=== PATIENT | female | born 1970 | race American Indian/Alaskan Native ===

== ENCOUNTER 2017-01-23 14:50 | Inpatient (IN) | payer MEDICARE, OTHER ==
[2017-01-23 14:58] VITALS: BMI 32.1
[2017-01-23] MEDS ORDERED: Alum-Mag Hydrox-Simethicone Susp (30 mL) PO STA (15:26)
--- NOTE | 2017-01-23 15:43 | ED PDOC ---
Arrival/HPI - General Chief Complaint: Chest Pain Time Seen by Provider: 01/23/17 14:55 Historian: Patient - History of Present Illness Narrative History of Present Illness (Text): 01/23/17 15:39 A 47 year old female, whose past medical history includes sciatica (on oxycodone chronically), presents to the emergency department complaining of chest and back pain that developed last night. Patient reports pain radiated to arms this morning. She reports this pain as pressure and notes it worsens upon deep breaths. She states she has a cough and feels lightheaded. Patient denies any nausea, vomiting, abdominal pain or any other complaints at this time. Time/Duration: Other (last night) Symptom Onset: Sudden Symptom Course: Unchanged Quality: Pressure, Other (pain) Activities at Onset: Rest Modifying Factors (Text): none Context: Home Associated Symptoms (Text): cough Past Medical History - Provider Review Nursing Documentation Reviewed: Yes - Cardiac Hx Cardiac Disorders: No - Pulmonary Hx Respiratory Disorders: No - Neurological Hx Neurological Disorder: No - HEENT Hx HEENT Disorder: No - Renal Hx Renal Disorder: No - Endocrine/Metabolic Hx Endocrine Disorders: No - Hematological/Oncological Hx Blood Disorders: No - Integumentary Hx Dermatological Disorder: No - Musculoskeletal/Rheumatological Hx Musculoskeletal Disorders: Yes Hx Degenerative Joint Disease: Yes - Gastrointestinal Hx Gastrointestinal Disorders: No - Genitourinary/Gynecological Hx Genitourinary Disorders: No - Psychiatric Hx Substance Use: No Family/Social History - Physician Review Nursing Documentation Reviewed: Yes Family/Social History: No Known Family HX Smoking Status: Current Some Days Smoker Hx Alcohol Use: Yes Frequency of alcohol use: Socially Hx Substance Use: No Allergies/Home Meds Allergies/Adverse Reactions: Allergies No Known Allergies Allergy (Verified 01/23/17 14:53) Home Medications: Home Meds Medication Instructions Recorded Confirmed Oxycodone HCl/Acetaminophen 1 tab PO PRN PRN 01/23/17 01/23/17 [Oxycodone-Acetaminophen 325 mg-7.5 mg] Review of Systems - Physician Review All systems were reviewed & negative as marked: Yes - Review of Systems Constitutional: absent: Fatigue, Fevers Eyes: absent: Vision Changes ENT: Normal Respiratory: Cough. absent: SOB Cardiovascular: Chest Pain Gastrointestinal: Nausea. absent: Abdominal Pain, Vomiting Genitourinary Female: Vaginal Bleeding. absent: Dysuria Musculoskeletal: Back Pain Neurological: Headache. absent: Dizziness, Focal Weakness Physical Exam Vital Signs Reviewed: Yes Vital Signs Temp Pulse Resp BP Pulse Ox 01/23/17 14:51 98.6 F 86 18 122/70 100 Temperature: Afebrile Blood Pressure: Normal Pulse: Regular Respiratory Rate: Normal Appearance: Positive for: Well-Appearing, Non-Toxic, Comfortable Pain Distress: None Mental Status: Positive for: Alert and Oriented X 3 - Systems Exam Head: Present: Atraumatic, Normocephalic Pupils: Present: PERRL Conjunctiva: Present: Normal Mouth: Present: Moist Mucous Membranes Pharnyx: Present: Normal. No: ERYTHEMA, EXUDATE Neck: Present: Normal Range of Motion Respiratory/Chest: Present: Clear to Auscultation, Good Air Exchange. No: Respiratory Distress, Accessory Muscle Use Cardiovascular: Present: Regular Rate and Rhythm, Normal S1, S2. No: Murmurs Abdomen: Present: Normal Bowel Sounds. No: Tenderness, Distention, Peritoneal Signs Back: Present: Normal Inspection Upper Extremity: Present: Normal Inspection. No: Cyanosis, Edema Lower Extremity: Present: Normal Inspection. No: Edema Neurological: Present: GCS=15, CN II-XII Intact, Speech Normal, Motor Func Grossly Intact, Gait Normal Skin: Present: Warm, Dry, Normal Color. No: Rashes Psychiatric: Present: Alert, Oriented x 3, Normal Insight, Normal Concentration Medical Decision Making ED Course and Treatment: 01/23/17 15:45 Impression: 47 year old female with chest pain and back pain. Differential Diagnosis included but are not limited to: musculoskeletal pain vs. GERD/gas vs. anxiety vs. PE vs. less likely ACS Plan: -- EKG -- chest xray -- Urinalysis -- Labs -- Reassess and disposition Progress Notes: EKG: Ordered, reviewed, and independently interpreted the EKG. Rate : 90 BPM Rhythm : NSR Interpretation : Normal intervals, normal axis, No ST/T changes Comparison : No previous EKG for comparison. Chest XR: NAD 01/23/17 16:55 Patient with noted history with unremarkable vitals and normal ekg. Labs however show very significant anemia. Patient does admit to previous blood transfusion last year for anemia and is supposed to be on iron, presumptively due to heavy menses. Her Hgb is however 6.9, which in the setting of cp, may be potentially playing a role in a potential cardiac etiology. First set of CE is negative but d-dimer is elevated. Chest CT is pending. Patient consented for blood transfusion and will need to be observed further on tele. Patient does report improvement of cp with protonix/famotidine/maalox, possibly reflecting GI etiology. 01/23/17 17:53 Case discussed with hospitalist, Dr. Shah, for placement on the hospitalist service. - Lab Interpretations Lab Results: 01/23/17 15:45 01/23/17 15:45 Lab Results 01/23/17 16:50: Blood Type Confirm AB POSITIVE 01/23/17 16:40: Blood Type AB POSITIVE, Antibody Screen Negative, Crossmatch See Detail, BBK History Checked No verified bt 01/23/17 15:45: Sodium 137, Potassium 3.9, Chloride 107, Carbon Dioxide 20 L, Anion Gap 14, BUN 12, Creatinine 0.7, Est GFR ( Amer) > 60, Est GFR (Non- Af Amer) > 60, Random Glucose 97, Calcium 8.9, Magnesium 2.1, Total Bilirubin 0.5, AST 29, ALT 33, Alkaline Phosphatase 84, Lactate Dehydrogenase 554, Total Creatine Kinase 86, Troponin I 0.05, Total Protein 8.3, Albumin 4.1, Globulin 4.2, Albumin/Globulin Ratio 1.0 L, Lipase 128 01/23/17 15:45: PT 10.4, INR 0.96, APTT 25.2, D-Dimer, Quantitative 0.61 H 01/23/17 15:45: WBC 5.0, RBC 3.79, Hgb 6.9 L*, Hct 24.3 L, MCV 64.1 L, MCH 18.2 L, MCHC 28.4 L, RDW 19.0 H, Plt Count 224, Gran % 62.7, Lymph % (Auto) 24.6, [place] % (Auto) 11.9 H, Eos % (Auto) 0.4 L, Baso % (Auto) 0.4, Gran # 3.11, Lymph # 1.2, [place] # 0.6, Eos # 0.0, Baso # 0.02 01/23/17 15:35: Urine Color Yellow, Urine Appearance Clear, Urine pH 6.0, Ur Specific [place] 1.025, Urine Protein Negative, Urine Glucose (UA) Negative, Urine Ketones Negative, Urine Blood Negative, Urine Nitrate Negative, Urine Bilirubin Negative, Urine Urobilinogen 0.2, Ur Leukocyte Esterase Negative I have reviewed the lab results: Yes - RAD Interpretation Radiology Orders: 01/23/17 15:25 CHEST PORTABLE [RAD] Stat 01/23/17 16:24 ANGIO CHEST PE PROTOCOL [CT] Stat - EKG Interpretation Interpreted by ED Physician: Yes Type: 12 lead EKG - Medication Orders Current Medication Orders: Discontinued Medications Al Hydrox/Mg Hydrox/Simethicone (Maalox Plus 30 Ml) 30 ml PO STAT STA Stop: 01/23/17 15:27 Last Admin: 01/23/17 15:54 Dose: 30 ml Famotidine (Pepcid) 20 mg IVP STAT STA Stop: 01/23/17 15:27 Last Admin: 01/23/17 15:54 Dose: 20 mg - Susyibe Statement The provider has reviewed the documentation as recorded by the Brenda Pacheco All medical record entries made by the Brenda were at my direction and personally dictated by me. I have reviewed the chart and agree that the record accurately reflects my personal performance of the history, physical exam, medical decision making, and the department course for this patient. I have also personally directed, reviewed, and agree with the discharge instructions and disposition. Disposition/Present on Arrival - Present on Arrival Any Indicators Present on Arrival: No History of DVT/PE: No History of Uncontrolled Diabetes: No Urinary Catheter: No History of Decub. Ulcer: No History Surgical Site Infection Following: None - Disposition Have Diagnosis and Disposition been Completed?: Yes Diagnosis: Symptomatic anemia, Chest pain Disposition: HOSPITALIZED Disposition Time: 16:55 Patient Plan: Observation, Telemetry Patient Problems: Current Active Problems Problem Status Onset Chest pain Acute Symptomatic anemia Acute Condition: FAIR
[2017-01-23 15:53] LABS: ADD MANUAL DIFF? NO
[2017-01-23 15:57] LABS: BASO # 0.02 K/mm3 (0.0-2.0); BASO % 0.4 % (0.0-3.0); EOS % 0.4 % (1.5-5.0); GRAN # 3.11 (1.4-6.5); GRAN % 62.7 % (50.0-68.0); HEMATOCRIT 24.3 % (36.0-48.0); LYMPH # 1.2 (1.2-3.4); LYMPH % 24.6 % (22.0-35.0); MEAN CELL VOLUME 64.1 fL (80.0-105.0); MEAN CORPUSCULAR HEMOGLOBIN 18.2 pg (25.0-35.0); MEAN CORPUSCULAR HGB CONC 28.4 g/dl (31.0-37.0); MONO # 0.6 (0.1-0.6); MONO % 11.9 % (1.0-6.0); PLATELET COUNT 224 10^3/uL (120.0-450.0)
[2017-01-23 15:59] LABS: URINE BILIRUBIN NEGATIVE (NEGATIVE); URINE BLOOD NEGATIVE (NEGATIVE); URINE GLUCOSE (UA) NEGATIVE (NEGATIVE); URINE KETONE NEGATIVE (NEGATIVE); URINE LEUKOCYTE ESTERASE NEGATIVE Leu/uL (NEGATIVE); URINE PROTEIN NEGATIVE mg/dL (<30 mg/dL); URINE UROBILINOGEN 0.2 E.U./dL (<1 E.U./dL)
[2017-01-23 16:02] LABS: URINE APPEARANCE CLEAR (CLEAR); URINE COLOR YELLOW (YELLOW)
[2017-01-23 16:05] LABS: ALKALINE PHOSPHATASE 84 U/L (38-133); ALT/SGPT 33 U/L (7-56); AST/SGOT 29 U/L (15-39); BILIRUBIN,TOTAL 0.5 mg/dL (0.2-1.3); BLOOD UREA NITROGEN 12 mg/dL (7-21); CALCIUM 8.9 mg/dL (8.4-10.5); CARBON DIOXIDE 20 mmol/L (21-33); CHLORIDE 107 mmol/L (98-107); GFR AFRICAN-AMERICAN > 60; GLUCOSE,RANDOM 97 mg/dL (70-110); LIPASE 128 U/L (23-300); MAGNESIUM 2.1 mg/dL (1.7-2.2); POTASSIUM 3.9 mmol/L (3.6-5.0); SODIUM 137 mmol/L (132-148); TOTAL PROTEIN 8.3 g/dL (5.8-8.3)
[2017-01-23 16:09] LABS: D DIMER 0.61 mg/L FEU (0-0.50); INR 0.96 (0.93-1.08); PARTIAL THROMBOPLASTIN TIME 25.2 Seconds (23.7-30.8)
[2017-01-23 16:17] LABS: TROPONIN I 0.05 ng/mL
--- NOTE | 2017-01-23 17:33 | RAD ---
HISTORY: chest pain COMPARISON: The the FINDINGS: LUNGS: No active pulmonary disease. PLEURA: No significant pleural effusion identified, no pneumothorax apparent. CARDIOVASCULAR: Borderline/mild cardiomegaly. OSSEOUS STRUCTURES: No significant abnormalities. VISUALIZED UPPER ABDOMEN: Normal. OTHER FINDINGS: None. IMPRESSION: No active disease.
[2017-01-23] MEDS ORDERED: Iohexol 350 MG/100 ML VIAL ONE (18:13)
[2017-01-23 18:27] LABS: IRON 15 ug/dL (45-180)
--- NOTE | 2017-01-23 18:48 | CP.PCM.HP ---
<Nhan Ng - Last Filed: 01/23/17 18:38> History of Present Illness - History of Present Illness History of Present Illness: CC: Chest pain 47 year old female with past medical history of anemia, back pain and sciatica ( on oxycodone chronically), presents to the ED complaining of chest pain. Pt states that the pain first started last night and it has got progressively worse. Today it has been radiating to the L arm and neck. The pain is associated with diffuse sweating. Pt states that she first thought this was just some gas but the pain did not go away. She states that the pain is substernal. Last year she was admitted to the hospital for Anemia. She states that she had a endoscopy done which showed an infection which she took abx for 14 days. Also 4 months ago she had a procedure for an ovarian cyst. She denies any headaches, dizziness, f/c, sob, abd pain, n/v/d, urinary changes, hematochezia, melana, or bm changes. Pmh: back pain, sciatica, anemia Psh: ovarian cyst removal 4mo ago All: NKA SH: active smoker, denies drinking and drugs FH: grand mother with heart dx and from stroke OBGYN hx : LMP 2-3 weeks ago, changes 2-3 pads a day, normal bleeding Present on Admission - Present on Admission Any Indicators Present on Admission: No Review of Systems - Review of Systems All systems: reviewed and no additional remarkable complaints except (HPI) Past Patient History - Past Social History Smoking Status: Heavy Smoker > 10 Cigarettes Daily Alcohol: None Drugs: Denies - CARDIAC Hx Cardiac Disorders: No - PULMONARY Hx Respiratory Disorders: No - NEUROLOGICAL Hx Neurological Disorder: No - HEENT Hx HEENT Problems: No - RENAL Hx Chronic Kidney Disease: No - ENDOCRINE/METABOLIC Hx Endocrine Disorders: No - HEMATOLOGICAL/ONCOLOGICAL Hx Blood Disorders: No - INTEGUMENTARY Hx Dermatological Problems: No - MUSCULOSKELETAL/RHEUMATOLOGICAL Hx Musculoskeletal Disorders: Yes Hx Degenerative Joint Disease: Yes - GASTROINTESTINAL Hx Gastrointestinal Disorders: No - GENITOURINARY/GYNECOLOGICAL Hx Genitourinary Disorders: No - PSYCHIATRIC Hx Substance Use: No - SURGICAL HISTORY Hx Surgeries: No Meds Allergies/Adverse Reactions: Allergies Allergy/AdvReac Type Severity Reaction Status Date / Time No Known Allergies Allergy Verified 01/23/17 14:53 Physical Exam - Constitutional Appears: No Acute Distress - Head Exam Head Exam: ATRAUMATIC, NORMAL INSPECTION, NORMOCEPHALIC - Eye Exam Eye Exam: EOMI, Normal appearance, PERRL Pupil Exam: NORMAL ACCOMODATION, PERRL - ENT Exam ENT Exam: Mucous Membranes Moist, Normal Exam - Neck Exam Neck exam: Positive for: Normal Inspection - Respiratory Exam Respiratory Exam: Clear to Auscultation Bilateral, NORMAL BREATHING PATTERN. absent: Rales, Wheezes - Cardiovascular Exam Cardiovascular Exam: REGULAR RHYTHM, RRR, +S1, +S2 - GI/Abdominal Exam GI & Abdominal Exam: Soft. absent: Distended, Tenderness - Extremities Exam Extremities exam: Positive for: normal inspection - Neurological Exam Neurological exam: Alert, Oriented x3, Reflexes Normal - Psychiatric Exam Psychiatric exam: Normal Affect, Normal Mood - Skin Skin Exam: Dry, Intact, Normal Color, Warm Results - Vital Signs Recent Vital Signs: Last Vital Signs Temp 98.2 F 01/23/17 18:25 Pulse 76 01/23/17 18:25 Resp 16 01/23/17 18:25 BP 146/84 01/23/17 18:25 Pulse Ox 100 01/23/17 14:51 - Labs Result Diagrams: 01/23/17 15:45 01/23/17 15:45 Labs: Laboratory Results - last 24 hr 01/23/17 18:00 Iron 15 L TIBC 459 % Saturation 3 L Assessment & Plan - Assessment and Plan (Free Text) Assessment: 47 year old female with past medical history of anemia, back pain and sciatica ( on oxycodone chronically), presents to the ED complaining of chest pain likely 2 /2 anemia. r/o ACS 1. R/o ACS - Trops .05 - Stat Ekg showed NSR - D-Dimer elevated 0.61 - F/u CT angio - Serial trops and EKG - Daily CBC CMP Mg and P - F/u Cardiology consult - F/u Echo 2. Anemia - Hb 6.9 - Blood transfusion consent - 2 unit PRBC ordered - f/u anemia work up - F/u CT abdomen - F/u transvaginal US - F/u GI consult - Protonix daily 3. Back pain, sciatica - Cont to monitor - Pain control 4. GI/DVT ppx - Protonix and SCDs - HHD Case and plan was seen, reviewed and dicussed in detail with Dr Shah. <Bryant Shah - Last Filed: 01/24/17 07:18> Results - Vital Signs Recent Vital Signs: Last Vital Signs Temp 98.2 F 01/24/17 06:00 Pulse 73 01/24/17 06:00 Resp 18 01/24/17 06:00 BP 111/70 01/24/17 06:00 Pulse Ox 100 01/24/17 06:00 - Labs Result Diagrams: 01/23/17 15:45 01/23/17 15:45 Labs: Laboratory Results - last 24 hr 01/23/17 01/23/17 01/23/17 18:00 18:00 21:00 Iron 15 L TIBC 459 % Saturation 3 L Ferritin 4.3 Lactate Dehydrogenase Total Creatine Kinase Troponin I Vitamin B12 758 Folate 8.9 Urine Opiates Screen Negative Urine Methadone Screen Negative Ur Barbiturates Screen Negative Ur Phencyclidine Scrn Negative Ur Amphetamines Screen Negative U Benzodiazepines Scrn Negative U Oth Cocaine Metabols Negative U Cannabinoids Screen Positive H 01/23/17 22:00 Iron TIBC % Saturation Ferritin Lactate Dehydrogenase 454 Total Creatine Kinase 95 Troponin I 0.10 D Vitamin B12 Folate Urine Opiates Screen Urine Methadone Screen Ur Barbiturates Screen Ur Phencyclidine Scrn Ur Amphetamines Screen U Benzodiazepines Scrn U Oth Cocaine Metabols U Cannabinoids Screen Attending/Attestation - Attestation I have personally seen and examined this patient.: Yes I have fully participated in the care of the patient.: Yes I have reviewed all pertinent clinical information: Yes Notes (Text): 01/23/17 47 year old female with past medical history of anemia and chronic back pain who presented with complaint of chest pain and shortness of breath. She is admitted to telemetry unit to rule out ACS. Will obtain serial troponins ( initial one is indeterminate at 0.05). Cardiology evaluation is requested and echocardiogram is ordered. D-dimer was mildly elevated and CT angio is ordered to rule out PE. She has no LE edema or calf tenderness. She was also found to have significant microcytic anemia with hemoglobin of 6.9. She is being transfused prbc. Will request GI evaluation to rule out GI blood loss. She reports her last EGD was about one year ago. She also report heavy menses at times. Transvaginal US and CT abd/pelvis is ordered. She is on percocet for history of chronic back pain / sciatica. Bryant Shah MD Hospitalist.
[2017-01-23] MEDS ORDERED: OXYCODONE HCL PO PRN (19:04)
[2017-01-23] MEDS ORDERED: ACETAMINOPHEN T PO PRN (19:04)
[2017-01-23] MEDS ORDERED: [UNRECOGNIZED DRUG - OTHER] PO PRN (19:04)
[2017-01-23 22:07] LABS: FOLATE 8.9 ng/mL
[2017-01-23 22:30] LABS: TROPONIN I 0.1 ng/mL
[2017-01-23] MEDS: Oxycodone/Acetaminophen 5/325 mg Tab PO PRN (22:45)
--- NOTE | 2017-01-23 22:45 | CT ---
EXAM: CT Angiography Chest With Intravenous Contrast CLINICAL HISTORY: 47 years old, female; Pain; Chest pain; Patient HX: Cp - R/O pe TECHNIQUE: Axial computed tomographic angiography images of the chest with intravenous contrast using pulmonary embolism protocol. This CT exam was performed using one or more of the following dose reduction techniques: automated exposure control, adjustment of the mA and/or kV according to patient size, and/or use of iterative reconstruction technique. MIP reconstructed images were created and reviewed. Coronal and sagittal reformatted images were created and reviewed. CONTRAST: 96 mL of OMNIPAQUE 350 administered intravenously. COMPARISON: DX - CHEST PORTABLE 01/23/2017 4:01:02 PM FINDINGS: Limitations: Motion artifact - mild. Pulmonary arteries: No definite pulmonary embolism. Aorta: No aneurysm. No dissection. Lungs: Few small cysts or bullae. No consolidation. Pleural space: No significant effusion. No pneumothorax. Heart: Borderline cardiomegaly. No significant pericardial effusion. Mediastinum: Small hiatal hernia. Bones/joints: Mild scoliosis. No acute fracture. Soft tissues: Unremarkable. Lymph nodes: No pathologically enlarged lymph nodes. Upper abdomen: See abdomen CT report for additional details. IMPRESSION: 1. No definite CT evidence of pulmonary embolism. 2. Incidental/non-acute findings are described above.
--- NOTE | 2017-01-23 22:50 | CT ---
EXAM: CT Abdomen and Pelvis Without Intravenous Contrast CLINICAL HISTORY: 47 years old, female; Pain; Abdominal pain; Patient HX: Chest pain, anemia TECHNIQUE: Axial computed tomography images of the abdomen and pelvis without intravenous contrast. This CT exam was performed using one or more of the following dose reduction techniques: automated exposure control, adjustment of the mA and/or kV according to patient size, and/or use of iterative reconstruction technique. Coronal and sagittal reformatted images were created and reviewed. COMPARISON: No relevant prior studies available. FINDINGS: Limitations: Lack of intravenous contrast. Lower thorax: See chest CT report for additional details. ABDOMEN: Liver: Unremarkable. Gallbladder and bile ducts: Multiple calcified gallstones. No ductal dilation. Pancreas: Unremarkable. No ductal dilation. Spleen: Mild splenomegaly, AP dimension. Adrenals: No mass. Kidneys and ureters: No renal calculi. No hydronephrosis. Stomach and bowel: Apparent mild mural thickening of few jejunal loops. No associated inflammatory stranding. No obstruction. Appendix: Normal caliber. No inflammation. PELVIS: Bladder: Unremarkable. No stones. Reproductive: 3.2 x 4.2 x 3.5 cm fat and soft tissue density lesion within LEFT ovary. 6.0 x 3.2 x 3.6 cm hypodense lesion within RIGHT ovary. ABDOMEN and PELVIS: Intraperitoneal space: Small free fluid within pelvis. No free air. Bones/joints: Scoliosis and degenerative changes of spine. No acute fracture. Soft tissues: Unremarkable. Vasculature: Mild atherosclerotic disease. No abdominal aortic aneurysm. Lymph nodes: No pathologically enlarged lymph nodes. IMPRESSION: 1. Possible mild enteritis. Clinical correlation is needed. 2. Probable RIGHT ovarian cyst. Suggest ultrasound. 3. LEFT ovarian dermoid. 4. Cholelithiasis. 5. Incidental/non-acute findings are described above.
[2017-01-24] MEDS ORDERED: Alum-Mag Hydrox-Simethicone Susp (30 mL) PO ONE (00:11)
[2017-01-24] MEDS ORDERED: Pneumococcal 23-Valent Vaccine IM ONE (03:06)
[2017-01-24] MEDS: Pantoprazole 40 mg EC Tab PO SCH (05:37)
[2017-01-24 07:49] LABS: HEMATOCRIT 28.6 % (36.0-48.0); MEAN CELL VOLUME 67.1 fL (80.0-105.0); MEAN CORPUSCULAR HEMOGLOBIN 19.7 pg (25.0-35.0); MEAN CORPUSCULAR HGB CONC 29.4 g/dl (31.0-37.0); PLATELET COUNT 181 10^3/uL (120.0-450.0); RED CELL DISTRIBUTION WIDTH 20.7 % (11.5-14.5); WHITE BLOOD COUNT 5.2 10^3/ul (4.5-11.0)
[2017-01-24 08:01] LABS: BLOOD UREA NITROGEN 8 mg/dL (7-21); CALCIUM 8.7 mg/dL (8.4-10.5); CARBON DIOXIDE 23 mmol/L (21-33); CHLORIDE 107 mmol/L (98-107); CHOLESTEROL 155 mg/dL (130-200); GFR AFRICAN-AMERICAN > 60; GLUCOSE,RANDOM 85 mg/dL (70-110); MAGNESIUM 2.2 mg/dL (1.7-2.2); PHOSPHOROUS 3.5 mg/dL (2.5-4.5); POTASSIUM 3.7 mmol/L (3.6-5.0); SODIUM 139 mmol/L (132-148)
[2017-01-24 08:14] LABS: TROPONIN I 0.16 ng/mL
[2017-01-24] MEDS ORDERED: Ferric Sodium Gluconat Complex 62.5 mg/5 ml Vial IVPB SCH (10:00)
[2017-01-24] MEDS: Oxycodone/Acetaminophen 5/325 mg Tab PO PRN (15:07)
--- NOTE | 2017-01-24 15:58 | CP.PCM.PN ---
<Luis Miguel Daniel - Last Filed: 01/24/17 15:54> Subjective - Date & Time of Evaluation Date of Evaluation: 01/24/17 Time of Evaluation: 08:30 - Subjective Subjective: Dr. Daniel PGY 1 hospitalist note Patient seen and evaluated at bedside with attending physician. She states she is feeling better and her chest pain has improved. She denies any SOB, cough, palpitations, nausea, vomiting, or chills. She says she still has some weakness. She states in the past she has had to get IV iron after an infusion. Per nursing, no adverse events over night. Objective - Vital Signs/Intake and Output Vital Signs (last 24 hours): Temp Pulse Resp BP Pulse Ox 98.1 F 68 16 105/50 L 99 01/24/17 11:39 01/24/17 13:28 01/24/17 11:39 01/24/17 11:39 01/24/17 08:36 Intake and Output: 01/24/17 01/24/17 06:59 18:59 Intake Total 705 540 Balance 705 540 - Medications Medications: Current Medications Aspirin (Ecotrin) 81 mg PO ONCE ONE Stop: 01/25/17 10:28 Atorvastatin Calcium (Lipitor) 40 mg PO DIN [facility] Metoprolol Tartrate (Lopressor) 25 mg PO BID [facility] Last Admin: 01/24/17 10:51 Dose: Not Given Oxycodone/Acetaminophen (Percocet 5/325 Mg Tab) 1 tab PO Q8H PRN PRN Reason: Pain, moderate (4-7) Last Admin: 01/24/17 15:07 Dose: 1 tab Pantoprazole Sodium (Protonix Ec Tab) 40 mg PO 0630 [facility] Last Admin: 01/24/17 05:37 Dose: 40 mg - Labs Labs: 01/24/17 07:40 01/24/17 07:40 PT 10.4 Seconds (9.9-11.8) 01/23/17 15:45 INR 0.96 (0.93-1.08) 01/23/17 15:45 APTT 25.2 Seconds (23.7-30.8) 01/23/17 15:45 - Constitutional Appears: Non-toxic, No Acute Distress - Head Exam Head Exam: ATRAUMATIC, NORMOCEPHALIC - Eye Exam Eye Exam: EOMI, Normal appearance, PERRL Pupil Exam: NORMAL ACCOMODATION, PERRL - ENT Exam ENT Exam: Mucous Membranes Moist. absent: Normal Oropharynx - Respiratory Exam Respiratory Exam: Clear to Ausculation Bilateral, NORMAL BREATHING PATTERN. absent: Rales, Rhonchi, Wheezes - Cardiovascular Exam Cardiovascular Exam: REGULAR RHYTHM, +S1, +S2. absent: Gallop, Rubs, Murmur - GI/Abdominal Exam GI & Abdominal Exam: Soft, Normal Bowel Sounds. absent: Tenderness - Extremities Exam Extremities Exam: Normal Capillary Refill, Normal Inspection. absent: Pedal Edema, Tenderness - Back Exam Back Exam: NORMAL INSPECTION. absent: rash noted, tenderness - Neurological Exam Neurological Exam: Alert, Awake, CN II-XII Intact, Oriented x3 - Psychiatric Exam Psychiatric exam: Normal Affect, Normal Mood - Skin Skin Exam: Dry, Intact, Pallor, Warm Assessment and Plan - Assessment and Plan (Free Text) Assessment: 47 year old female with past medical history of anemia, back pain and sciatica ( on oxycodone chronically), presents with complaint of chest pain likely secondary to anemia. Transfused 2 unites of PRBC. Cardiac enzymes trending up. Plan: Chest Pain * Cardiology consulted, help appreciated * Troponin trending up -currently 0.16, continue to trend * EKG shows normal sinus rhythm * D-Dimer elevated 0.61 * Chest CT showed no definite evidence of PE [see full report] * Percocet prn pain * toxicology positive for cannabinoids * Daily CBC CMP Mg and P * F/u Echo Anemia * Initial Hgb 6.9 now 8.4 * Blood transfusion consent * 2 unit PRBC given * Iron studies show Iron 15, TIBc 459, 3%saturation with Ferritin of 4.3 * CT abdomen shows possible mild enteritis, right ovarian cyst, left ovaraian dermoid, cholelithiasis * GI consulted, help appreciated * Started on IV Iron daily * F/u transvaginal US * Protonix daily Back pain, sciatica * Cont to monitor * Pain control GI/DVT ppx * Protonix and SCDs * HHD Case and plan was seen, reviewed and discussed in detail with attending. <Bryant Shah - Last Filed: 01/25/17 11:54> Objective - Vital Signs/Intake and Output Vital Signs (last 24 hours): Temp Pulse Resp BP Pulse Ox 98.1 F 77 20 122/68 98 01/25/17 05:42 01/25/17 05:42 01/25/17 05:42 01/25/17 05:42 01/25/17 05:42 Intake and Output: 01/25/17 01/25/17 06:59 18:59 Intake Total 660 Balance 660 - Medications Medications: Current Medications Atorvastatin Calcium (Lipitor) 40 mg PO DIN [facility] Last Admin: 01/24/17 16:32 Dose: Not Given Metoprolol Tartrate (Lopressor) 25 mg PO BID [facility] Last Admin: 01/25/17 09:11 Dose: Not Given Oxycodone/Acetaminophen (Percocet 5/325 Mg Tab) 1 tab PO Q8H PRN PRN Reason: Pain, moderate (4-7) Last Admin: 01/25/17 01:04 Dose: 1 tab Pantoprazole Sodium (Protonix Ec Tab) 40 mg PO 0630 [facility] Last Admin: 01/25/17 06:02 Dose: 40 mg - Labs Labs: 01/25/17 06:30 01/25/17 06:30 PT 10.4 Seconds (9.9-11.8) 01/23/17 15:45 INR 0.96 (0.93-1.08) 01/23/17 15:45 APTT 25.2 Seconds (23.7-30.8) 01/23/17 15:45 Attending/Attestation - Attestation I have personally seen and examined this patient.: Yes I have fully participated in the care of the patient.: Yes I have reviewed all pertinent clinical information, including history, physical exam and plan: Yes Notes (Text): 01/24/17 47 year old female with past medical history of anemia and chronic back pain who presented with complaint of chest pain and shortness of breath. She was found to have significant microcytic anemia with hemoglobin of 6.9. She received two units of prbc with improvement of hemoglobin to 8.4. Will begin iv iron therapy. CT abd/pelvis and transvaginal US were reviewed. GI evaluation was requested to rule out GI source of blood loss. Her chest pain has resolved. D-dimer was mildly elevated but CT angio is negative for PE. She does have borderline to mildly elevated troponin. Cardiology evaluation was requested. Aspirin, statin and metoprolol were ordered. Echocardiogram is pending. She is on percocet for history of chronic back pain / sciatica. Bryant Shah MD Hospitalist.
--- NOTE | 2017-01-24 18:59 | CON ---
DATE: 01/24/2017 REASON FOR CONSULTATION: Chest pain. HISTORY OF PRESENT ILLNESS: The patient is a 47-year-old -[place] female who is on disabilit y because of chronic low back pain. She presents because of chest pain radiating to the left shoulde r and the upper back as well as abdominal discomfort. The patient is unaware of any prior cardiac hi story in the past. The patient reported both dizziness and diaphoresis during her chest discomfort. SOCIAL HISTORY: The patient is a smoker and drinker. PAST MEDICAL HISTORY: History of ovarian cyst. REVIEW OF SYSTEMS: No nausea or vomiting. No hematemesis or melena. No fever or chills. MEDICATIONS: Aspirin 81 mg once a day, Lipitor 10 mg once a day, Lopressor 25 mg twice a day, Proton ix 40 mg p.o. daily. PHYSICAL EXAMINATION: GENERAL: The patient is a middle-aged female who does not appear to be in any distress. VITAL SIGNS: Blood pressure 105/70, heart rate 74, temperature 98.1, respirations 16. HEENT: Normocephalic. NECK: No JVD. CHEST: Clear. HEART: S1, S2 regular. ABDOMEN: Soft. EXTREMITIES: No edema or calf tenderness. LABORATORY DATA: Today's SMA-7 is within normal limit. Troponin was 0.05, 0.1 and 0.16. Lipid prof ile is within normal limits. D-dimer slightly elevated at 0.61. PT, PTT within normal limits. Hemo globin and hematocrit 8.4 and 28.6. White count and platelet count are 5.2 and 181,000. Admitting h emoglobin and hematocrit were 6.9 and 24.3. The patient received 2 units of packed RBC transfusion. CT angio of the chest: No definite pulmonary embolus. Abdomen and pelvis CT scan impression: Poss ible mild enteritis, probable right ovarian cyst, left ovarian dermoid, cholelithiasis. ASSESSMENT: 1. Chest pain with borderline troponin elevation. Consider [id number] myocardial infarction. 2. Acute blood loss. Consider gastrointestinal bleeding. 3. Cannabinoid abuse. RECOMMENDATIONS: Continue current aspirin 81 mg once a day, increase Lipitor to 40 mg once a day. C ontinue Lopressor 25 mg twice a day. Obtain an echocardiogram as well as GI evaluation. Faustino Contreras MD cc: [id number] TT: 01/24/2017 18:58:42 Confirmation # [id number] Dictation # [id number] mn
--- NOTE | 2017-01-24 19:03 | US ---
Pelvic ultrasound 01/24/2017. History: Heavy menses. Transvaginal sonographic evaluation of the pelvis performed. Findings: The uterus measures approximately 9.7 x 4.2 x 6.2 cm. Endometrial stripe measures approximately 8.9 mm. . The uterus is heterogeneous. Discrete fibroids are present one, measuring 2.0 x 1.7 x 1.0 cm and another measuring.7 x.68 x .93 cm. Trace fluid present in the cul de sac. Left ovary not visualized. Right ovary measures 4.0 x 3.6 x 3.7 cm and contains small cyst that measures 3.3 x 2.4 x 3.3 cm. Impression: Uterine fibroids as above. Right ovarian cyst. Consider repeat U/S in 6 weeks to assess resolution
[2017-01-24 20:22] LABS: TROPONIN I 0.11 ng/mL
--- NOTE | 2017-01-24 22:14 | CARD ---
APPROVED REPORT EKG Measurement Heart [id number] <Conclusion> Normal sinus rhythm Normal ECG
[2017-01-25 00:14] LABS: TROPONIN I 0.1 ng/mL
[2017-01-25] MEDS: Oxycodone/Acetaminophen 5/325 mg Tab PO PRN ×2 (01:04→18:29)
[2017-01-25] MEDS: Pantoprazole 40 mg EC Tab PO SCH (06:02)
[2017-01-25 08:39] LABS: HEMATOCRIT 29.8 % (36.0-48.0); MEAN CELL VOLUME 67.4 fL (80.0-105.0); MEAN CORPUSCULAR HEMOGLOBIN 20.1 pg (25.0-35.0); MEAN CORPUSCULAR HGB CONC 29.9 g/dl (31.0-37.0); PLATELET COUNT 199 10^3/uL (120.0-450.0); RED CELL DISTRIBUTION WIDTH 20.9 % (11.5-14.5); WHITE BLOOD COUNT 5.3 10^3/ul (4.5-11.0)
--- NOTE | 2017-01-25 08:48 | CON ---
DATE: 01/24/2017 This patient was seen and evaluated earlier. This 47-year-old patient with a past medical history of chronic back pain, sciatica, admitted with weakness and also some atypical chest pain. The patient denies any bleeding per rectum or vomiting. The patient was found to have a hemoglobin of 6.9, anemi c. Stool for occult blood was done . The patient was negative. The patient is being fol lowed by , and he was found to have ovarian cyst surgery done before. The patient's primary doctor is . The patient received some blood transfusion. The patient received 2 units of blood transfusion. The patient is not having any periods. In the past, she was found to be anemic a nd an endoscopy was done about a year ago by and she was told it was okay. She took some a ntibiotic for treatment of what appeared to be for H. pylori. She never had a colonoscopy done. Jus t before the endoscopy, during the time of evaluation with endoscopy, she was also found to be anemic at that time; that was a year ago. The patient was also found to have mildly elevated troponin leve l. SOCIAL HISTORY: Positive for smoking and alcohol. PAST MEDICAL HISTORY: As above. REVIEW OF SYSTEMS: Positive as above. Other systems reviewed, negative. Has atypical chest pain on the left side radiating to the shoulder area. The patient has significant anemia after being transf used. PHYSICAL EXAMINATION: GENERAL: The patient sitting up in bed, not in acute distress. VITAL SIGNS: Blood pressure 105/70, heart rate 74, temperature 98.1, respirations 16. HEENT: Atraumatic and anicteric. NECK: Supple. HEART: S1, S2 heard. LUNGS: Bilateral air entry present. ABDOMEN: Soft. There is no tenderness. EXTREMITIES: No edema. NEUROLOGIC: Alert, oriented. Moves all the extremities. LABORATORY DATA: Hemoglobin was 6.9, transfused 2 units and hemoglobin is 8.4 now. MCV is 64.1. The patient did have a CT of the abdomen. The CT of the abdomen and pelvis done showed . The p atient also has gallstones. The ultrasound done showed uterine fibroids . IMPRESSION: This is a 47-year-old patient with significant anemia, admitted with atypical chest pain and being evaluated by cardiology for mildly elevated troponin level. Would recommend: 1. Ultrasound scan of the abdomen. 2. Empiric PPI. 3. We will consider upper GI endoscopy after cardiac clearance. We will continue to closely follow up her care and suggest further management based on the clinical c ourse. We will continue to closely follow up her care. The patient will endoscopy, continue t he empiric PPI, followup of the hemoglobin and hematocrit. Thank you very much for allowing us to participate in the care of the patient. Lulu Walker MD cc: [id number] TT: 01/24/2017 23:28:31 Confirmation # [id number] Dictation # [id number] mn
[2017-01-25 08:52] LABS: BLOOD UREA NITROGEN 9 mg/dL (7-21); CALCIUM 8.9 mg/dL (8.4-10.5); CARBON DIOXIDE 25 mmol/L (21-33); CHLORIDE 106 mmol/L (98-107); GFR AFRICAN-AMERICAN > 60; GLUCOSE,RANDOM 82 mg/dL (70-110); POTASSIUM 4.1 mmol/L (3.6-5.0); SODIUM 138 mmol/L (132-148)
--- NOTE | 2017-01-25 12:16 | CP.PCM.PN ---
Addendum entered and electronically signed by Olayinka Granados DO 01/25/17 13:54: Patient started on Plavix and will be undergoing cardiac catheterization today as per cardio recs. Original Note: <Olayinka Granados - Last Filed: 01/25/17 12:54> Subjective - Date & Time of Evaluation Date of Evaluation: 01/25/17 Time of Evaluation: 09:10 - Subjective Subjective: Patient seen and examined at bedside with medical attending. Patient reports feeling more energized compared to time of admission. Patient states she no longer has chest pain. At time of examination patient denied hematochezia/ hematemesis. Patient denies abnormal vaginal bleeding and states her periods are normal. Currently denies headache/dizziness, palpitations, shortness of breath, and abdominal pain. No acute events over night. Patient tentatively schedule for endoscopy and colonoscopy tomorrow morning, awaiting cardiac clearance. Objective - Vital Signs/Intake and Output Vital Signs (last 24 hours): Temp Pulse Resp BP Pulse Ox 98.1 F 77 20 122/68 98 01/25/17 05:42 01/25/17 05:42 01/25/17 05:42 01/25/17 05:42 01/25/17 05:42 Intake and Output: 01/25/17 01/25/17 06:59 18:59 Intake Total 660 Balance 660 - Medications Medications: Current Medications Atorvastatin Calcium (Lipitor) 40 mg PO DIN REPLACED BY [facility] Last Admin: 01/24/17 16:32 Dose: Not Given Metoprolol Tartrate (Lopressor) 25 mg PO BID REPLACED BY [facility] Last Admin: 01/25/17 09:11 Dose: Not Given Oxycodone/Acetaminophen (Percocet 5/325 Mg Tab) 1 tab PO Q8H PRN PRN Reason: Pain, moderate (4-7) Last Admin: 01/25/17 01:04 Dose: 1 tab Pantoprazole Sodium (Protonix Ec Tab) 40 mg PO 0630 REPLACED BY [facility] Last Admin: 01/25/17 06:02 Dose: 40 mg - Labs Labs: 01/25/17 06:30 01/25/17 06:30 PT 10.4 Seconds (9.9-11.8) 01/23/17 15:45 INR 0.96 (0.93-1.08) 01/23/17 15:45 APTT 25.2 Seconds (23.7-30.8) 01/23/17 15:45 - Constitutional Appears: No Acute Distress - Head Exam Head Exam: NORMOCEPHALIC - Eye Exam Eye Exam: Normal appearance - ENT Exam ENT Exam: Mucous Membranes Moist - Respiratory Exam Respiratory Exam: NORMAL BREATHING PATTERN - Cardiovascular Exam Cardiovascular Exam: +S1, +S2. absent: Tachycardia - GI/Abdominal Exam GI & Abdominal Exam: Soft. absent: Tenderness - Neurological Exam Neurological Exam: Alert, Awake, Oriented x3 - Psychiatric Exam Psychiatric exam: Normal Mood - Skin Skin Exam: Normal Color Assessment and Plan - Assessment and Plan (Free Text) Assessment: 47F w/ PMHx of anemia, back pain and sciatica (on oxycodone chronically), presents with complaint of chest pain likely secondary to anemia. Transfused 2 units of PRBC, as well as IV Iron transfusion, responding appropriately, Hgb currently at 8.9 Plan: Chest Pain * Cardiology consulted. Recommend ASA 81mg, Lipitor 40 mg daily, and Lopressor 25mg BID * Troponin peak at 0.16, following levels nml x2 * EKG shows normal sinus rhythm * Chest CT showed no definite evidence of PE [see full report] * Percocet prn pain * toxicology positive for cannabinoids * Daily CBC CMP * Awaiting Echo results Anemia * Initial Hgb 6.9 now 8.9, s/p 2 units of PRBCs * CT abdomen shows possible mild enteritis, right ovarian cyst, left ovaraian dermoid, cholelithiasis * GI on board. Recommend upper GI endoscopy as well as colonoscopy. Pt schedule tentatively for tomorrow, awaiting cardiac clearance. If patient cleared by cardiology, will start clear liquid diet and bowel prep. NPO after midnight. * Transvaginal U/S demonstrated: right ovarian cyst, and fibroids (Please see report for full details) * Protonix daily Back pain, sciatica * Chronic * Pain control GI/DVT ppx * Protonix and SCDs * HHD Case and plan was seen, reviewed and discussed in detail with attending. <Homer SANCHEZ,Shyam - Last Filed: 01/25/17 14:15> Objective - Vital Signs/Intake and Output Vital Signs (last 24 hours): Temp Pulse Resp BP Pulse Ox 97.8 F 71 16 123/82 98 01/25/17 12:00 01/25/17 12:00 01/25/17 12:00 01/25/17 12:00 01/25/17 05:42 Intake and Output: 01/25/17 01/25/17 06:59 18:59 Intake Total 660 Balance 660 - Medications Medications: Current Medications Atorvastatin Calcium (Lipitor) 40 mg PO DIN REPLACED BY [facility] Last Admin: 01/24/17 16:32 Dose: Not Given Metoprolol Tartrate (Lopressor) 25 mg PO BID REPLACED BY [facility] Last Admin: 01/25/17 09:11 Dose: Not Given Oxycodone/Acetaminophen (Percocet 5/325 Mg Tab) 1 tab PO Q8H PRN PRN Reason: Pain, moderate (4-7) Last Admin: 01/25/17 01:04 Dose: 1 tab - Labs Labs: 01/25/17 06:30 01/25/17 06:30 PT 10.4 Seconds (9.9-11.8) 01/23/17 15:45 INR 0.96 (0.93-1.08) 01/23/17 15:45 APTT 25.2 Seconds (23.7-30.8) 01/23/17 15:45 Attending/Attestation - Attestation I have personally seen and examined this patient.: Yes I have fully participated in the care of the patient.: Yes I have reviewed all pertinent clinical information, including history, physical exam and plan: Yes Notes (Text): 01/25/17 14:10 Patient was seen and examined with medical claims processor .Agreed with resident assessment and plan. 47 F was admitted with symptomatic anemia ,microcytic hypochromic anemia likely blood lose anemia, hemoglobin improved after 2 units of PRBC.There is no active bleeding.Patient chest pain and elevated troponin was due to demand ischemia.may have underlying CAD.Patient has been evaluated by cardiology and plan for cardiac cath in the morning.Patient will need GI work up once cleared by cardiology. Management plan was discussed in detail with patient Education was provided.
[2017-01-25] MEDS ORDERED: Iodixanol 320 MG/ML 100 ML BOTTLE IV ONE (13:16)
[2017-01-25] MEDS ORDERED: Iohexol 350mgl/ml 50 ML ONE (13:16)
[2017-01-25] MEDS ORDERED: Phenylephrine 10 mg/ml Inj ONE (13:17)
[2017-01-25] MEDS ORDERED: Iodixanol 320 mg/ml 150 ml Bottle IV ONE (13:17)
[2017-01-25] MEDS ORDERED: Lidocaine 2% Inj (20ml) ONE (13:18)
[2017-01-25] MEDS ORDERED: Iohexol 350 MG/100 ML VIAL ONE (13:22)
--- NOTE | 2017-01-25 13:23 | PN ---
DATE: 01/25/2017 I discussed with the patient about her abnormal troponins. The patient present with chest pain. Her workup has found her to be anemic. However, her troponins remain elevated. A PE was ruled out. Given these findings, the patient has a high probability for CAD. Discussed risks, benefits of cardi ac catheterization with the patient in detail. The patient is agreeable for cardiac catheterization. We will perform today. Josué Lucas MD cc: [id number] TT: 01/25/2017 13:22:35 Confirmation # [id number] Dictation # [id number] en
--- NOTE | 2017-01-25 13:29 | PQF AMI ---
This form is a permanent part of the medical record Dr. Shah (or current hospitalist), Chart reflects this patient was admitted with chest pain with borderline troponins, found to have severe anemia. Attending physician noted the chest pain may be from severe anemia. e business consultant noted to consider a NSTEMI. Please document if NSTEMI was POA, ruled out, undetermined at this time. Clarification of your documentation is requested to better reflect the severity of illness and intensity of treatment of your patient. Indicators present [] Diagnosis of DE without specification of time frame (within 28 days of admission of greater than 28 days prior to admission) [] Diagnosis of subsequent DE (time frame of previous DE within 28 days of admission or greater than 28 days of admission) [] Diagnosis of DE w/o specified site [] EKG positive for changes (i.e.; ST elevation, non-ST elevation, Q-wave changes, etc.) [] Elevated Troponins [] Elevated Cardiac Enzymes [] Cardiac consult documentation of [] Chest pain/ACS/Unstable Angina [] Echo findings of [] Other: [] Location in the medical record that reflects the above clinical findings:[] Other Treatment Provided:[] PHYSICIAN'S RESPONSE Based on your medical judgment of the clinical indicators outlined above, are you treating this patient for a known or suspected: [ ] NSTEMI [ ] STEMI Site: [ ] [ ] ACS/Unstable Angina [ ] Angina :[ ] [ x] Other, please indicate [ ]___Mildly elevated troponin. Possible NSTEMI due to demand ischemia. If Unable to Determine, please check the box, sign and date Present On Admission (POA) Indicator: [ ] Present at the time of admission [ ] Not present at the time of admission [ ] Clinically Undetermined * If you have any questions please call:[ ] * Thank you, [ ]Farideh Friedman [facility] #[id number] pony ride attendant In responding to this query, please exercise your independent professional judgment. The fact that a question is asked does not imply that any particular answer is desired or expected. Thank you for your clarification on this documentation. RICA
[2017-01-25] MEDS ORDERED: Midazolam 2 MG/2 ML VIAL ONE ×2 (13:36→13:53)
--- NOTE | 2017-01-25 14:00 | PN ---
DATE: 01/25/2017 The patient complained of no appetite this morning. Had a little bit of nausea after eating this morning. No vomiting. Denies any abdominal pain or overt GI bleed. VITAL SIGNS: Temperature is 98.1, blood pressure 122/68, pulse 76, respirations 20, 98 on room air. LABORATORY DATA: WBC is 5.3, H and H is 8.9 and 29.8, platelets 199. Sodium 138, K 4.1, BUN 9, creatinine 0.7. The patient had transvaginal ultrasound yesterday and this showed uterine fibroids, right ovarian cyst, repeat in 6 weeks to assess resolution. PHYSICAL EXAMINATION: HEENT: Sclera is anicteric. NECK: Supple. CARDIAC: S1 and S2. LUNGS: With decreased breath sounds, but good air entry, no rales or wheeze. ABDOMEN: With bowel sounds, soft, nontender on palpation. No rebound or guarding. EXTREMITIES: No edema. NEUROLOGIC: Awake, alert, and oriented. ASSESSMENT: A 47-year-old female with history of anemia with atypical chest pain, noted to have mildly elevated troponin. The patient with right ovarian cyst, not reporting any current vaginal bleeding. PLAN: Tentatively, we will plan for EGD colon. The patient is going to be evaluated by cardiology. If cleared, then we will schedule the patient for EGD colon. Liquid diet has been placed just in case. The patient is on IV iron. May benefit from a ELECTROLYSIS OPERATOR followup in view of transvaginal ultrasound. We will request for abdominal ultrasound to rule out any gallbladder pathology and patient was given a dose of aspirin today. We will place on iron. Start patient GI prophylaxis. We will await cardiology recommendations. Discussed with nursing staff. The patient was seen and case discussed with Dr. Walker. ADDENDUM: patient went for cardiac catherization, no blockage found/negative study, will plan for diagnostic EGD, given Plavix 600 mg, NPO 12 midnight, spoke to patient and nursing staff. Bre Brucees RACHEL cc: [id number] TT: 01/25/2017 13:59:40 Confirmation # [id number] Dictation # [id number] [facility]
[2017-01-25] MEDS ORDERED: Sodium Chloride 0.9% 1,000 ML IV SCH (14:15)
--- NOTE | 2017-01-25 15:18 | CARDCATH ---
PROCEDURE DATE: 01/25/2017 HISTORY OF PRESENT ILLNESS: The patient is a 47-year-old woman who presents with elevated troponins . She was also found to be anemic. She is complaining of chest pain. She also suffers from hyperch olesterolemia. She was found to have cannabis in her urine during toxicology. Because of her elevated troponins and chest pain, cardiac catheterization was recommended. PROCEDURE: Left heart catheterization with coronary angiography and left ventriculogram. The right femoral artery was cannulated with a 6-Stateless sheath. There were no complications. The findings on catheterization revealed a left ventricle that contracted normally. Estimated ejecti on fraction is 50-55%. Her coronary anatomy revealed a right dominant circulation. The RCA was selectively cannulized and found to be unremarkable. The left main artery was unremarkable. The LAD and diagonal vessels revealed mild intimal irregularities without significant stenosis. The circumflex artery and obtuse marginal branches were free of significant disease. The patient tolerated the procedure well. Angio-Seal was used to close the femoral artery site. In summary, the procedure revealed unremarkable coronary arteries and normal LV function. Given these findings, the patient's elevated troponins cannot be explained by critical coronary arter y disease. Her LV function reveals no damage to her heart function. Given these findings, we will continue on a cardiac risk reduction program. The patient can go for e ndoscopy to work up for anemia as necessary. Josué Lucas MD cc: [id number] TT: 01/25/2017 15:17:31 an
--- NOTE | 2017-01-25 23:48 | PN ---
DATE: 01/25/2017 ADDENDUM This is an addendum to the GI progress report dictated by Bre Gregg NP. The patient did have a cardiac cath done today. There is no blockage noticed. No significant blocka ge noticed. No TRUCKSMITH was done. The patient did get admitted with severe anemia. The patient has hist ory of H. pylori gastritis in the past, treated. The patient never had a colonoscopy done, and in vi ew of this cardiac catheterization, it is not possible to prepare the patient. But she would benefit from upper GI endoscopy. The patient did receive Plavix loading dose. It is reasonable to do a rebekah gnostic endoscopy in view of the severe anemia. Explained to the patient who understands. Lulu Walker MD cc: [id number] TT: 01/25/2017 23:48:10 Confirmation # [id number] Dictation # [id number] tn
[2017-01-26] MEDS: Oxycodone/Acetaminophen 5/325 mg Tab PO PRN ×2 (01:11→16:20)
[2017-01-26 09:12] LABS: ADD MANUAL DIFF? NO
[2017-01-26 09:18] LABS: BASO # 0.02 K/mm3 (0.0-2.0); BASO % 0.3 % (0.0-3.0); EOS % 0.3 % (1.5-5.0); GRAN # 4.37 (1.4-6.5); GRAN % 70.5 % (50.0-68.0); HEMATOCRIT 30.9 % (36.0-48.0); LYMPH # 1.3 (1.2-3.4); LYMPH % 21.5 % (22.0-35.0); MEAN CELL VOLUME 67.6 fL (80.0-105.0); MEAN CORPUSCULAR HEMOGLOBIN 19.9 pg (25.0-35.0); MEAN CORPUSCULAR HGB CONC 29.4 g/dl (31.0-37.0); MONO # 0.5 (0.1-0.6); MONO % 7.4 % (1.0-6.0); PLATELET COUNT 213 10^3/uL (120.0-450.0); RED CELL DISTRIBUTION WIDTH 21.5 % (11.5-14.5); WHITE BLOOD COUNT 6.2 10^3/ul (4.5-11.0)
[2017-01-26 09:26] LABS: ALB/GLOB RATIO 0.9 (1.1-1.8); ALKALINE PHOSPHATASE 85 U/L (38-133); ALT/SGPT 35 U/L (7-56); AST/SGOT 30 U/L (15-39); BILIRUBIN,TOTAL 0.7 mg/dL (0.2-1.3); BLOOD UREA NITROGEN 9 mg/dL (7-21); CALCIUM 8.9 mg/dL (8.4-10.5); CARBON DIOXIDE 22 mmol/L (21-33); CHLORIDE 106 mmol/L (98-107); GFR AFRICAN-AMERICAN > 60; GLUCOSE,RANDOM 81 mg/dL (70-110); POTASSIUM 4.5 mmol/L (3.6-5.0); SODIUM 137 mmol/L (132-148); TOTAL PROTEIN 8.6 g/dL (5.8-8.3)
--- NOTE | 2017-01-26 10:46 | PN ---
DATE: 01/26/2017 The patient is ambulating without symptoms. PHYSICAL EXAMINATION: VITAL SIGNS: Stable. NECK: Negative JVD. LUNGS: Without rales. HEART: Reveals S1, S2. EXTREMITIES: Without edema. Right groin site is stable. LABORATORIES: Hemoglobin is 9.1. Chemistries are unremarkable. IMPRESSION: 1. Status post non-ST elevation myocardial infarction. 2. No significant coronary disease on cardiac catheterization. 3. Anemia. 4. Cannabis usage. Given these findings, the patient's cardiac status is stable. We will discontinue telemetry. The mariana ohara is for endoscopy today. Josué Lucas MD cc: [id number] TT: 01/26/2017 10:46:14 Confirmation # [id number] Dictation # [id number] en
[2017-01-26] MEDS ORDERED: Propofol 10 mg/ml Inj (20 ML) ONE (12:37)
[2017-01-26] MEDS ORDERED: Sodium Chloride 0.9% 1,000 ML IV SCH (13:00)
--- NOTE | 2017-01-26 15:59 | CP.PCM.PN ---
<Emerald Smallwood - Last Filed: 01/26/17 16:07> Subjective - Date & Time of Evaluation Date of Evaluation: 01/26/17 Time of Evaluation: 07:40 - Subjective Subjective: Pt seen and evaluated at bedside. Pt is eating well, except for recent NPO for endoscopy this AM. Reports walking and denies N/V. Afebrile overnight. Objective - Vital Signs/Intake and Output Vital Signs (last 24 hours): Temp Pulse Resp BP Pulse Ox 97.8 F 69 17 130/71 97 01/26/17 13:27 01/26/17 13:27 01/26/17 13:27 01/26/17 13:27 01/26/17 13:27 Intake and Output: 01/26/17 01/26/17 06:59 18:59 Intake Total 300 Balance 300 - Medications Medications: Current Medications Atorvastatin Calcium (Lipitor) 40 mg PO DIN [facility] Last Admin: 01/25/17 17:25 Dose: 40 mg Metoprolol Tartrate (Lopressor) 25 mg PO BID [facility] Last Admin: 01/26/17 11:15 Dose: 25 mg Oxycodone/Acetaminophen (Percocet 5/325 Mg Tab) 1 tab PO Q8H PRN PRN Reason: Pain, moderate (4-7) Last Admin: 01/26/17 01:11 Dose: 1 tab Pantoprazole Sodium (Protonix Ec Tab) 40 mg PO 0630 [facility] - Labs Labs: 01/26/17 09:00 01/26/17 09:00 PT 10.4 Seconds (9.9-11.8) 01/23/17 15:45 INR 0.96 (0.93-1.08) 01/23/17 15:45 APTT 25.2 Seconds (23.7-30.8) 01/23/17 15:45 - Constitutional Appears: Non-toxic, No Acute Distress - Head Exam Head Exam: ATRAUMATIC, NORMOCEPHALIC - Eye Exam Eye Exam: EOMI, Normal appearance - ENT Exam ENT Exam: Mucous Membranes Moist, Normal Exam - Respiratory Exam Respiratory Exam: Clear to Ausculation Bilateral, NORMAL BREATHING PATTERN - Cardiovascular Exam Cardiovascular Exam: +S1, +S2. absent: Tachycardia - GI/Abdominal Exam GI & Abdominal Exam: Soft. absent: Tenderness - Extremities Exam Extremities Exam: Normal Capillary Refill. absent: Tenderness - Back Exam Back Exam: absent: CVA tenderness (L), CVA tenderness (R) - Neurological Exam Neurological Exam: Alert, Awake - Skin Skin Exam: Normal Color, Warm Assessment and Plan - Assessment and Plan (Free Text) Plan: 47F w/ PMHx of anemia, back pain and sciatica (on oxycodone chronically), presents with complaint of chest pain likely secondary to anemia. Transfused 2 units of PRBC, as well as IV Iron transfusion, responding appropriately, Hgb currently at 9.1, cardiac cath today without significant CAD findings: Plan: Chest Pain * Cardiology consulted. Recommend ASA 81mg, Lipitor 40 mg daily, and Lopressor 25mg BID * Troponin peak at 0.16, following levels nml x2 * EKG shows normal sinus rhythm * Chest CT showed no definite evidence of PE [see full report] * Percocet prn pain * toxicology positive for cannabinoids * Daily CBC CMP * Awaiting Echo results, cardiac cath yesterday w/o significant CAD findings. Anemia * Initial Hgb 6.9 now 9.1, s/p 2 units of PRBCs * CT abdomen shows possible mild enteritis, right ovarian cyst, left ovaraian dermoid, cholelithiasis * GI on board. Recommend upper GI endoscopy as well as colonoscopy. * endoscopy report: "gastric antral vascular ectasia, gastric ulcer, no specimens collected, ....repeat upper endoscopy in 2 months." * Transvaginal U/S demonstrated: right ovarian cyst, and fibroids (Please see report for full details) * Protonix daily Back pain, sciatica * Chronic * Pain control R groin pain: LE doppler was ordered, f/u report GI/DVT ppx * Protonix and SCDs * HHD Case and plan was seen, reviewed and discussed in detail with attending. <Homer SANCHEZ,Shyam - Last Filed: 01/26/17 16:51> Objective - Vital Signs/Intake and Output Vital Signs (last 24 hours): Temp Pulse Resp BP Pulse Ox 97.8 F 69 17 130/71 97 01/26/17 13:27 01/26/17 13:27 01/26/17 13:27 01/26/17 13:27 01/26/17 13:27 Intake and Output: 01/26/17 01/26/17 06:59 18:59 Intake Total 300 Balance 300 - Medications Medications: Current Medications Atorvastatin Calcium (Lipitor) 40 mg PO DIN [facility] Last Admin: 01/25/17 17:25 Dose: 40 mg Metoprolol Tartrate (Lopressor) 25 mg PO BID [facility] Last Admin: 01/26/17 11:15 Dose: 25 mg Oxycodone/Acetaminophen (Percocet 5/325 Mg Tab) 1 tab PO Q8H PRN PRN Reason: Pain, moderate (4-7) Last Admin: 01/26/17 16:20 Dose: 1 tab Pantoprazole Sodium (Protonix Ec Tab) 40 mg PO 0630 [facility] - Labs Labs: 01/26/17 09:00 01/26/17 09:00 PT 10.4 Seconds (9.9-11.8) 01/23/17 15:45 INR 0.96 (0.93-1.08) 01/23/17 15:45 APTT 25.2 Seconds (23.7-30.8) 01/23/17 15:45 Attending/Attestation - Attestation I have personally seen and examined this patient.: Yes I have fully participated in the care of the patient.: Yes I have reviewed all pertinent clinical information, including history, physical exam and plan: Yes Notes (Text): 01/26/17 16:47 Patient was seen and examined with medical radiation tech .Agreed with resident assessment and plan. 47 F was admitted with symptomatic anemia ,microcytic hypochromic anemia likely blood lose anemia, hemoglobin improved after 2 units of PRBC.There is no active bleeding.Patient chest pain and elevated troponin was due to demand ischemia.may have underlying CAD. Patient underwent Cardiac catherization yesterday and was fopund to normal coronries.Patient underwent Endoscipy today that showed gastric ulcer, no evidence of bleeding, Patient is on PPI, will need Colonoscopy as out patient. Management plan was discussed in detail with patient Education was provided.
[2017-01-26 17:08] LABS: ADD MANUAL DIFF? NO
[2017-01-26 17:09] LABS: BASO # 0.02 K/mm3 (0.0-2.0); BASO % 0.3 % (0.0-3.0); EOS % 0.5 % (1.5-5.0); GRAN # 4.12 (1.4-6.5); GRAN % 68.2 % (50.0-68.0); HEMATOCRIT 29.8 % (36.0-48.0); LYMPH # 1.4 (1.2-3.4); LYMPH % 22.7 % (22.0-35.0); MEAN CELL VOLUME 67.7 fL (80.0-105.0); MEAN CORPUSCULAR HEMOGLOBIN 20.2 pg (25.0-35.0); MEAN CORPUSCULAR HGB CONC 29.9 g/dl (31.0-37.0); MEAN PLATELET VOLUME 9.3 fl (7.0-11.0); MONO # 0.5 (0.1-0.6); MONO % 8.3 % (1.0-6.0); PLATELET COUNT 202 10^3/uL (120.0-450.0); RED CELL DISTRIBUTION WIDTH 21.4 % (11.5-14.5)
--- NOTE | 2017-01-26 17:15 | US ---
PROCEDURE: Duplex arterial ultrasound of the right groin. HISTORY: Recent cardiac catheterization. Pain and pulsatile mass in the right groin. Evaluate for pseudoaneurysm or fistula. PHYSICIAN(S): Josué Iyer MD. FINDINGS: The right common femoral artery is patent with a normal triphasic waveform. No sonographic evidence of a pseudoaneurysm or AV fistula is seen. The right superficial femoral artery and profunda femoral artery are patent proximally. The visualized venous segments the right groin are patent and compressible. IMPRESSION: 1. No sonographic evidence for pseudoaneurysm or AV fistula in the right groin.
--- NOTE | 2017-01-26 19:57 | CARD ---
APPROVED REPORT EXAM: Two-dimensional and M-mode echocardiogram with Doppler and color Doppler. INDICATION LV Function:SystolicDiastolic 2D DIMENSIONS Left Atrium (2D)3.8 (1.6-4.0cm)IVSd1.1 (0.7-1.1cm) LVDd4.9 (3.9-5.9cm)PWd1.1 (0.7-1.1cm) LVDs3.3 (2.5-4.0cm)FS (%) 32.2 % LVEF (%)60.3 (>50%) M-Mode DIMENSIONS Aortic Root2.60 (2.2-3.7cm)Aortic Cusp Exc.1.70 (1.5-2.0cm) Aortic Valve AoV Peak Mtkocpub662.0cm/Mandeep Peak GR.6mmHg Mitral Valve MV E Ikedtekx44.9cm/sMV A Fghwrjwe64.0cm/sE/A ratio1.1 TDI E/Lateral E'0.0E/Medial E'0.0 Tricuspid Valve TR Peak Pqpswfay809ig/sRAP EOIWKQYF71haQtJI Peak Gr.13mmHg FHSF05sdLn LEFT VENTRICLE The left ventricle is normal size. There is normal left ventricular wall thickness. The left ventricular function is normal. The left ventricular ejection fraction is within the normal range. There is normal LV segmental wall motion. The left ventricular diastolic function is normal. RIGHT VENTRICLE The right ventricle is normal size. There is normal right ventricular wall thickness. The right ventricular systolic function is normal. ATRIA The left atrium size is normal. The right atrium size is normal. AORTIC VALVE The aortic valve is normal in structure. No aortic regurgitation is present. MITRAL VALVE The mitral valve is mildly thickened. There is no mitral valve regurgitation noted. TRICUSPID VALVE There is no pulmonary hypertension. GREAT VESSELS The aortic root is normal in size. The IVC is normal in size and collapses >50% with inspiration. <Conclusion> The left ventricle is normal size. There is normal left ventricular wall thickness. The left ventricular function is normal. The left ventricular ejection fraction is within the normal range. There is normal LV segmental wall motion. The left ventricular diastolic function is normal.
[2017-01-27] MEDS ORDERED: Alum-Mag Hydrox-Simethicone Susp (30 mL) PO ONE (00:23)
[2017-01-27] MEDS: Oxycodone/Acetaminophen 5/325 mg Tab PO PRN (00:39)
[2017-01-27 06:24] VITALS: O2SAT 100
[2017-01-27] MEDS ORDERED: Pantoprazole 40 mg EC Tab PO SCH (06:30)
[2017-01-27 07:59] LABS: ADD MANUAL DIFF? NO
[2017-01-27 08:02] LABS: BASO # 0.01 K/mm3 (0.0-2.0); BASO % 0.2 % (0.0-3.0); EOS # 0.1 (0.0-0.7); EOS % 1.1 % (1.5-5.0); GRAN # 3.96 (1.4-6.5); GRAN % 69.6 % (50.0-68.0); HEMATOCRIT 31.5 % (36.0-48.0); LYMPH # 1.3 (1.2-3.4); LYMPH % 22.4 % (22.0-35.0); MEAN CELL VOLUME 68.6 fL (80.0-105.0); MEAN CORPUSCULAR HGB CONC 29.2 g/dl (31.0-37.0); MONO # 0.4 (0.1-0.6); MONO % 6.7 % (1.0-6.0); PLATELET COUNT 189 10^3/uL (120.0-450.0); RED CELL DISTRIBUTION WIDTH 22.2 % (11.5-14.5); WHITE BLOOD COUNT 5.7 10^3/ul (4.5-11.0)
[2017-01-27 08:18] LABS: ALB/GLOB RATIO 0.9 (1.1-1.8); ALKALINE PHOSPHATASE 86 U/L (38-133); ALT/SGPT 35 U/L (7-56); AST/SGOT 31 U/L (15-39); BILIRUBIN,TOTAL 0.6 mg/dL (0.2-1.3); BLOOD UREA NITROGEN 10 mg/dL (7-21); CALCIUM 8.9 mg/dL (8.4-10.5); CARBON DIOXIDE 23 mmol/L (21-33); CHLORIDE 108 mmol/L (98-107); GFR AFRICAN-AMERICAN > 60; GLUCOSE,RANDOM 80 mg/dL (70-110); POTASSIUM 4.2 mmol/L (3.6-5.0); SODIUM 139 mmol/L (132-148); TOTAL PROTEIN 8.3 g/dL (5.8-8.3)
--- NOTE | 2017-01-27 08:48 | PN ---
DATE: 01/27/2017 The patient with a small lump over the right groin site. Mild tenderness noted. PHYSICAL EXAMINATION: VITAL SIGNS: Blood pressure 123/73. The heart rate is in the 80s. NECK: Negative JVD. LUNGS: Without rales. HEART: Reveals S1, S2. EXTREMITIES: Without edema. The right groin site is noted. Ultrasound of the right groin reveals no fistula, no pseudoaneurysm. LABORATORIES: Hemoglobin yesterday is unchanged. IMPRESSION: 1. Status post osa-WP-ogxjwgzum myocardial infarction. 2. No evidence of pseudoaneurysm in the right groin. 3. Anemia. 4. Stable post cardiac catheterization. PLAN: Given these findings, the patient can be discharged today. Josué Lucas MD cc: [id number] TT: 01/27/2017 08:47:57 Confirmation # [id number] Dictation # [id number] mn
--- NOTE | 2017-01-27 12:39 | CP.PCM.DIS ---
<Olayinka Granados - Last Filed: 01/27/17 13:52> Provider - Provider Date of Admission: 01/23/17 18:31 Attending physician: Shyam Coronel MD Primary care physician: Sunil Harkins MD Consults: Dr. Aaron Lucas Time Spent in preparation of Discharge (in minutes): 30 Hospital Course - Lab Results Lab Results: Most Recent Lab Values WBC 5.7 10^3/ul (4.5-11.0) 01/27/17 07:20 RBC 4.59 10^6/uL (3.5-6.1) 01/27/17 07:20 Hgb 9.2 gm/dL (12.0-16.0) L 01/27/17 07:20 Hct 31.5 % (36.0-48.0) L 01/27/17 07:20 MCV 68.6 fL (80.0-105.0) L 01/27/17 07:20 MCH 20.0 pg (25.0-35.0) L 01/27/17 07:20 MCHC 29.2 g/dl (31.0-37.0) L 01/27/17 07:20 RDW 22.2 % (11.5-14.5) H 01/27/17 07:20 Plt Count 189 10^3/uL (120.0-450.0) 01/27/17 07:20 MPV 9.3 fl (7.0-11.0) 01/26/17 17:00 Gran % 69.6 % (50.0-68.0) H 01/27/17 07:20 Lymph % (Auto) 22.4 % (22.0-35.0) 01/27/17 07:20 [place] % (Auto) 6.7 % (1.0-6.0) H 01/27/17 07:20 Eos % (Auto) 1.1 % (1.5-5.0) L 01/27/17 07:20 Baso % (Auto) 0.2 % (0.0-3.0) 01/27/17 07:20 Gran # 3.96 (1.4-6.5) 01/27/17 07:20 Lymph # 1.3 (1.2-3.4) 01/27/17 07:20 [place] # 0.4 (0.1-0.6) 01/27/17 07:20 Eos # 0.1 (0.0-0.7) 01/27/17 07:20 Baso # 0.01 K/mm3 (0.0-2.0) 01/27/17 07:20 PT 10.4 Seconds (9.9-11.8) 01/23/17 15:45 INR 0.96 (0.93-1.08) 01/23/17 15:45 APTT 25.2 Seconds (23.7-30.8) 01/23/17 15:45 D-Dimer, Quantitative 0.61 mg/L FEU (0-0.50) H 01/23/17 15:45 Sodium 139 mmol/L (132-148) 01/27/17 07:20 Potassium 4.2 mmol/L (3.6-5.0) 01/27/17 07:20 Chloride 108 mmol/L (98-107) H 01/27/17 07:20 Carbon Dioxide 23 mmol/L (21-33) 01/27/17 07:20 Anion Gap 12 (10-20) 01/27/17 07:20 BUN 10 mg/dL (7-21) 01/27/17 07:20 Creatinine 0.7 mg/dL (0.5-1.4) 01/27/17 07:20 Est GFR ( Amer) > 60 01/27/17 07:20 Est GFR (Non-Af Amer) > 60 01/27/17 07:20 Random Glucose 80 mg/dL (70-110) 01/27/17 07:20 Calcium 8.9 mg/dL (8.4-10.5) 01/27/17 07:20 Phosphorus 3.5 mg/dL (2.5-4.5) 01/24/17 07:40 Magnesium 2.2 mg/dL (1.7-2.2) 01/24/17 07:40 Iron 15 ug/dL (45-180) L 01/23/17 18:00 TIBC 459 ug/dL (265-497) 01/23/17 18:00 % Saturation 3 % (20-55) L 01/23/17 18:00 Ferritin 4.3 ng/mL 01/23/17 18:00 Total Bilirubin 0.6 mg/dL (0.2-1.3) 01/27/17 07:20 AST 31 U/L (15-39) 01/27/17 07:20 ALT 35 U/L (7-56) 01/27/17 07:20 Alkaline Phosphatase 86 U/L (38-133) 01/27/17 07:20 Lactate Dehydrogenase 435 U/L (333-699) 01/24/17 23:30 Total Creatine Kinase 76 U/L (35-230) 01/24/17 23:30 Troponin I 0.10 ng/mL 01/24/17 23:30 Total Protein 8.3 g/dL (5.8-8.3) 01/27/17 07:20 Albumin 4.0 g/dL (3.0-4.8) 01/27/17 07:20 Globulin 4.3 gm/dL 01/27/17 07:20 Albumin/Globulin Ratio 0.9 (1.1-1.8) L 01/27/17 07:20 Triglycerides 94 mg/dL (35-160) 01/24/17 07:40 Cholesterol 155 mg/dL (130-200) 01/24/17 07:40 LDL Cholesterol Direct 64 mg/dL (0-129) 01/24/17 07:40 HDL Cholesterol 53 mg/dL (29-60) 01/24/17 07:40 Lipase 128 U/L (23-300) 01/23/17 15:45 Vitamin B12 758 pg/mL (239-931) 01/23/17 18:00 Folate 8.9 ng/mL 01/23/17 18:00 Urine Color Yellow (YELLOW) 01/23/17 15:35 Urine Appearance Clear (CLEAR) 01/23/17 15:35 Urine pH 6.0 (4.7-8.0) 01/23/17 15:35 Ur Specific [place] 1.025 (1.005-1.035) 01/23/17 15:35 Urine Protein Negative mg/dL (<30 mg/dL) 01/23/17 15:35 Urine Glucose (UA) Negative mg/dL (NEGATIVE) 01/23/17 15:35 Urine Ketones Negative mg/dL (NEGATIVE) 01/23/17 15:35 Urine Blood Negative (NEGATIVE) 01/23/17 15:35 Urine Nitrate Negative (NEGATIVE) 01/23/17 15:35 Urine Bilirubin Negative (NEGATIVE) 01/23/17 15:35 Urine Urobilinogen 0.2 E.U./dL (<1 E.U./dL) 01/23/17 15:35 Ur Leukocyte Esterase Negative [place]/uL (NEGATIVE) 01/23/17 15:35 Urine Opiates Screen Negative (NEGATIVE) 01/23/17 21:00 Urine Methadone Screen Negative (NEGATIVE) 01/23/17 21:00 Ur Barbiturates Screen Negative (NEGATIVE) 01/23/17 21:00 Ur Phencyclidine Scrn Negative (NEGATIVE) 01/23/17 21:00 Ur Amphetamines Screen Negative (NEGATIVE) 01/23/17 21:00 U Benzodiazepines Scrn Negative (NEGATIVE) 01/23/17 21:00 U Oth Cocaine Metabols Negative (NEGATIVE) 01/23/17 21:00 U Cannabinoids Screen Positive (NEGATIVE) H 01/23/17 21:00 Blood Type AB POSITIVE 01/23/17 16:40 Blood Type Confirm AB POSITIVE 01/23/17 16:50 Antibody Screen Negative 01/23/17 16:40 Crossmatch See Detail 01/23/17 16:40 BBK History Checked No verified bt 01/23/17 16:40 - Hospital Course Hospital Course: 47F with past medical history of anemia, back pain and sciatica (on oxycodone chronically), presents to the ED complaining of chest pain. Pt states that the pain first started at night and it got progressively worse. Pain has been radiating to the L arm and neck. The pain is associated with diffuse sweating. Pt states that she first thought this was just some gas but the pain did not go away. She states that the pain is substernal. Last year she was admitted to the hospital for Anemia. She states that she had a endoscopy done which showed an infection which she took abx for 14 days. Also 4 months ago she had a procedure for an ovarian cyst. She denies any headaches, dizziness, f/c, sob, abd pain, n/ v/d, urinary changes, hematochezia, melana, or bm changes. 01/24: Refusing BP meds, on IV Iron, 01/25: Pt went for diagnostic cardiac catheterization. Scheduled for Upper endoscopy pending cardiac clearance. EF 50-55% 01/26: cath yesterday w/o significant CAD findings, upper endoscopy today found gastric antral vasc. ectasia, gastric ulcer. R groin pain reports after cath, so LE doppler ordered by CANNERY WORKER on floor 01/27: Patient's cath puncture site is clean, dry, intact, reports some soreness along puncture site. No evidence of hematoma. Ext pulses intact Above is a brief description of patient's hospital course, for more detailed information please refer to medical records. Discharge Exam - Head Exam Head Exam: ATRAUMATIC, NORMOCEPHALIC - Eye Exam Eye Exam: Normal appearance - ENT Exam ENT Exam: Mucous Membranes Moist - Respiratory Exam Respiratory Exam: NORMAL BREATHING PATTERN - Cardiovascular Exam Cardiovascular Exam: +S1, +S2 - GI/Abdominal Exam GI & Abdominal Exam: Soft - Neurological Exam Neurological exam: Alert, Oriented x3 - Skin Skin Exam: Dry, Warm Discharge Plan - Discharge Medications Prescriptions: Ascorbic Acid/Ferrous Sulfate [Iberet-Folic 500] 325 mg PO DAILY #30 ter Docusate Sodium [Colace] 100 mg PO BID #60 capsule Metoprolol Succinate [Toprol XL] 25 mg PO BID #60 tab Metoprolol Tartrate [Lopressor] 25 mg PO BID #60 tab Pantoprazole [Protonix EC Tab] 40 mg PO DAILY #30 ect Pantoprazole Sodium [Protonix] 40 mg PO DAILY #30 ect - Follow Up Plan Condition: FAIR Disposition: HOME/ ROUTINE Instructions: Chest Pain (DC), Chest Pain (GEN), How to Stop Smoking (DC), Heart Healthy Diet (DC), Anemia (DC) Additional Instructions: You are discharged. Please follow-up with your PMD for follow-up endoscopy in two months. Please return to emergency department for worsening of symptoms. Referrals: Sunil Harkins MD [Primary Care Provider] - <Shyam Coronel MD - Last Filed: 01/28/17 12:32> Provider - Provider Date of Admission: 01/23/17 18:31 Attending physician: Shyam Coronel MD Primary care physician: Sunil Harkins MD Hospital Course - Lab Results Lab Results: Most Recent Lab Values WBC 5.7 10^3/ul (4.5-11.0) 01/27/17 07:20 RBC 4.59 10^6/uL (3.5-6.1) 01/27/17 07:20 Hgb 9.2 gm/dL (12.0-16.0) L 01/27/17 07:20 Hct 31.5 % (36.0-48.0) L 01/27/17 07:20 MCV 68.6 fL (80.0-105.0) L 01/27/17 07:20 MCH 20.0 pg (25.0-35.0) L 01/27/17 07:20 MCHC 29.2 g/dl (31.0-37.0) L 01/27/17 07:20 RDW 22.2 % (11.5-14.5) H 01/27/17 07:20 Plt Count 189 10^3/uL (120.0-450.0) 01/27/17 07:20 MPV 9.3 fl (7.0-11.0) 01/26/17 17:00 Gran % 69.6 % (50.0-68.0) H 01/27/17 07:20 Lymph % (Auto) 22.4 % (22.0-35.0) 01/27/17 07:20 [place] % (Auto) 6.7 % (1.0-6.0) H 01/27/17 07:20 Eos % (Auto) 1.1 % (1.5-5.0) L 01/27/17 07:20 Baso % (Auto) 0.2 % (0.0-3.0) 01/27/17 07:20 Gran # 3.96 (1.4-6.5) 01/27/17 07:20 Lymph # 1.3 (1.2-3.4) 01/27/17 07:20 [place] # 0.4 (0.1-0.6) 01/27/17 07:20 Eos # 0.1 (0.0-0.7) 01/27/17 07:20 Baso # 0.01 K/mm3 (0.0-2.0) 01/27/17 07:20 PT 10.4 Seconds (9.9-11.8) 01/23/17 15:45 INR 0.96 (0.93-1.08) 01/23/17 15:45 APTT 25.2 Seconds (23.7-30.8) 01/23/17 15:45 D-Dimer, Quantitative 0.61 mg/L FEU (0-0.50) H 01/23/17 15:45 Sodium 139 mmol/L (132-148) 01/27/17 07:20 Potassium 4.2 mmol/L (3.6-5.0) 01/27/17 07:20 Chloride 108 mmol/L (98-107) H 01/27/17 07:20 Carbon Dioxide 23 mmol/L (21-33) 01/27/17 07:20 Anion Gap 12 (10-20) 01/27/17 07:20 BUN 10 mg/dL (7-21) 01/27/17 07:20 Creatinine 0.7 mg/dL (0.5-1.4) 01/27/17 07:20 Est GFR ( Amer) > 60 01/27/17 07:20 Est GFR (Non-Af Amer) > 60 01/27/17 07:20 Random Glucose 80 mg/dL (70-110) 01/27/17 07:20 Calcium 8.9 mg/dL (8.4-10.5) 01/27/17 07:20 Phosphorus 3.5 mg/dL (2.5-4.5) 01/24/17 07:40 Magnesium 2.2 mg/dL (1.7-2.2) 01/24/17 07:40 Iron 15 ug/dL (45-180) L 01/23/17 18:00 TIBC 459 ug/dL (265-497) 01/23/17 18:00 % Saturation 3 % (20-55) L 01/23/17 18:00 Ferritin 4.3 ng/mL 01/23/17 18:00 Total Bilirubin 0.6 mg/dL (0.2-1.3) 01/27/17 07:20 AST 31 U/L (15-39) 01/27/17 07:20 ALT 35 U/L (7-56) 01/27/17 07:20 Alkaline Phosphatase 86 U/L (38-133) 01/27/17 07:20 Lactate Dehydrogenase 435 U/L (333-699) 01/24/17 23:30 Total Creatine Kinase 76 U/L (35-230) 01/24/17 23:30 Troponin I 0.10 ng/mL 01/24/17 23:30 Total Protein 8.3 g/dL (5.8-8.3) 01/27/17 07:20 Albumin 4.0 g/dL (3.0-4.8) 01/27/17 07:20 Globulin 4.3 gm/dL 01/27/17 07:20 Albumin/Globulin Ratio 0.9 (1.1-1.8) L 01/27/17 07:20 Triglycerides 94 mg/dL (35-160) 01/24/17 07:40 Cholesterol 155 mg/dL (130-200) 01/24/17 07:40 LDL Cholesterol Direct 64 mg/dL (0-129) 01/24/17 07:40 HDL Cholesterol 53 mg/dL (29-60) 01/24/17 07:40 Lipase 128 U/L (23-300) 01/23/17 15:45 Vitamin B12 758 pg/mL (239-931) 01/23/17 18:00 Folate 8.9 ng/mL 01/23/17 18:00 Urine Color Yellow (YELLOW) 01/23/17 15:35 Urine Appearance Clear (CLEAR) 01/23/17 15:35 Urine pH 6.0 (4.7-8.0) 01/23/17 15:35 Ur Specific [place] 1.025 (1.005-1.035) 01/23/17 15:35 Urine Protein Negative mg/dL (<30 mg/dL) 01/23/17 15:35 Urine Glucose (UA) Negative mg/dL (NEGATIVE) 01/23/17 15:35 Urine Ketones Negative mg/dL (NEGATIVE) 01/23/17 15:35 Urine Blood Negative (NEGATIVE) 01/23/17 15:35 Urine Nitrate Negative (NEGATIVE) 01/23/17 15:35 Urine Bilirubin Negative (NEGATIVE) 01/23/17 15:35 Urine Urobilinogen 0.2 E.U./dL (<1 E.U./dL) 01/23/17 15:35 Ur Leukocyte Esterase Negative [place]/uL (NEGATIVE) 01/23/17 15:35 Urine Opiates Screen Negative (NEGATIVE) 01/23/17 21:00 Urine Methadone Screen Negative (NEGATIVE) 01/23/17 21:00 Ur Barbiturates Screen Negative (NEGATIVE) 01/23/17 21:00 Ur Phencyclidine Scrn Negative (NEGATIVE) 01/23/17 21:00 Ur Amphetamines Screen Negative (NEGATIVE) 01/23/17 21:00 U Benzodiazepines Scrn Negative (NEGATIVE) 01/23/17 21:00 U Oth Cocaine Metabols Negative (NEGATIVE) 01/23/17 21:00 U Cannabinoids Screen Positive (NEGATIVE) H 01/23/17 21:00 Blood Type AB POSITIVE 01/23/17 16:40 Blood Type Confirm AB POSITIVE 01/23/17 16:50 Antibody Screen Negative 01/23/17 16:40 Crossmatch See Detail 01/23/17 16:40 BBK History Checked No verified bt 01/23/17 16:40 Attending/Attestation - Attestation I have personally seen and examined this patient.: Yes I have fully participated in the care of the patient.: Yes I have reviewed all pertinent clinical information, including history, physical exam and plan: Yes Notes (Text): 01/28/17 12:30 Patient was seen and examined with medical psychotherapist .Agreed with resident assessment and plan. 47 F was admitted with symptomatic anemia ,microcytic hypochromic anemia likely blood lose anemia, hemoglobin improved after 2 units of PRBC.There is no active bleeding.Patient chest pain and elevated troponin was due to demand ischemia.. Patient underwent Cardiac catherization yesterday and was fopund to normal coronries. Patient underwent Endoscopy that showed gastric ulcer, no evidence of bleeding, Patient is on PPI, will need Colonoscopy as out patient. She is discharged home on PPI,oral Iron, beta helen and stool softener. She will follow up with PCP and GI. Management plan was discussed in detail with patient Education was provided.
[2017-01-27 12:45] VITALS: BP 122/73; PULSE 65; RESP 18; TEMP 97.9
--- NOTE | 2017-01-27 16:36 | PN ---
DATE: 01/27/2017 Seen and examined at the bedside earlier this afternoon. The patient had an endoscopy yesterday for anemia and found to have ____ and gastric ulcers. The patient denies any acute symptoms overnight or any complaints this morning. She is tolerating oral intake. No reports of any bleeding or any feve r, chills, shortness of breath or chest pain. VITAL SIGNS: Temperature is 97.9, blood pressure 122/73, pulse 65, respirations 18. LABORATORY DATA: WBC 5.7, H and H are 9.2 and 31.5, platelets are ____. Chem: Sodium 139, K 4.2, B UN 10, creatinine 0.7. LFTs are within normal limits. PHYSICAL EXAMINATION: HEENT: Sclerae are anicteric. NECK: Supple. CARDIAC: S1, S2. LUNGS: Clear. ABDOMEN: With bowel sounds, soft, nontender, no organomegaly. ASSESSMENT: Anemia, status post 2 units of packed RBCs; had atypical chest pain and mildly elevated troponin, status post cardiac catheterization which was negative. She also has a right ovarian cyst; no current complaints of vaginal bleeding. Status post diagnostic endoscopy, found to have ____ and gastric ulcer. No biopsies obtained as patient had loading dose of Plavix. PLAN: Discussed with the patient. She should continue on Protonix 40 mg and will need a repeat endo scopy in about 2 months' time to follow up her ulcers. She has her own personal GI doctor, Dr. Sukh marie, in [place] which she states she will follow up. I spoke to nursing staff and the patient that she should get her endoscopy report to take with her. She is going to be given prescription for Pro tonix by medical team. Also she was recommended previously that she would benefit from an elective o utpatient colonoscopy. The patient was status post cardiac catheterization at the time and was not o ptimal to prep for colonoscopy. The patient was seen and case discussed with Dr. Walker. Bre Gregg RACHEL cc: [id number] TT: 01/27/2017 16:35:58 Confirmation # [id number] Dictation # [id number] mn
== END 2017-01-27 14:47 | disposition home or self-care (01) | DRG 811 ==
LOC: ED 14:50 → ERH 16:52 → MERGE 18:31 → OBSVTOIN 18:31 → ERH 21:26 → 2RSO 22:40
PROVIDERS: ADMIT Internal Medicine; ATTEND Internal Medicine
PROC: 30233N1 Transfusion of Nonautologous Red Blood Cells into Peripheral Vein, Percutaneous Approach (ICD-10-PCS; 2017-01-23)
PROC: 4A023N7 Measurement of Cardiac Sampling and Pressure, Left Heart, Percutaneous Approach (ICD-10-PCS; 2017-01-25)
PROC: B2151ZZ Fluoroscopy of Left Heart using Low Osmolar Contrast (ICD-10-PCS; 2017-01-25)
PROC: B2111ZZ Fluoroscopy of Multiple Coronary Arteries using Low Osmolar Contrast (ICD-10-PCS; 2017-01-25)
PROC: 0DJ08ZZ Inspection of Upper Intestinal Tract, Via Natural or Artificial Opening Endoscopic (ICD-10-PCS; principal; 2017-01-26 13:30)
DX: D50.0 Iron deficiency anemia secondary to blood loss (chronic) (principal); K31.819 Angiodysplasia of stomach and duodenum without bleeding; K25.9 Gastric ulcer, unspecified as acute or chronic, without hemorrhage or perforation; I21.4 Non-ST elevation (NSTEMI) myocardial infarction; F12.10 Cannabis abuse, uncomplicated; F17.210 Nicotine dependence, cigarettes, uncomplicated; M54.30 Sciatica, unspecified side; G89.29 Other chronic pain; N83.201 Unspecified ovarian cyst, right side; E78.00 Pure hypercholesterolemia, unspecified; K80.20 Calculus of gallbladder without cholecystitis without obstruction; Z82.3 Family history of stroke

== ENCOUNTER 2017-07-13 07:47 | Observation (INO) | payer MEDICARE, OTHER ==
--- NOTE | 2017-07-13 08:19 | ED PDOC ---
Arrival/HPI - General Chief Complaint: Back Pain Time Seen by Provider: 07/13/17 07:57 Historian: Patient - History of Present Illness Narrative History of Present Illness (Text): 07/13/17 08:05 A 47 year old female, whose past medical history includes sciatica, presents to the emergency department complaining of upper back pain for 2 days. Patient reports pain radiates down left arm and into chest, where she describes to experience chest "tightness". She states when taking deep breaths, pain worsens. Patient had been taking gas medications and was concerned pain was caused by it, so she decided not to take anymore. Earlier this morning, symptoms instead worsened. Patient states she has never experienced these symptoms in the past. Patient notes also experiencing some dizziness and lightheadedness, but denies of any fever, chills, nausea, vomiting, abdominal pain, urinary output changes, or any other complaints. Also, patient mentions taking oxycodone for sciatica but has not taken any since 2 days ago. Patient currently is on period and takes no controls. Currently unemployed. Patient has no history of substance abuse; drinks socially and currently smokes. PMD: Dr. Zamora Time/Duration: < week (2 days) Symptom Onset: Sudden Symptom Course: Unchanged Context: Home Associated Symptoms (Text): 07/13/17 09:05 Two day history of bilateral trapezius pain with radiation into her left arm and into her chest. Pain is made worse by deep breathing. No dyspnea. No trauma. No diaphoresis. No nausea or vomiting. No dizziness. She has never experienced. she does not appear ill or in any distress. Past Medical History - Provider Review Nursing Documentation Reviewed: Yes - Infectious Disease Hx of Infectious Diseases: None - Reproductive Menopause: No - Cardiac Hx Cardiac Disorders: No Hx Angina: No Hx Cardiac Arrhythmia: No Hx Circulatory Problems: No Hx Congestive Heart Failure: No Hx Heart Murmur: No Hx Heart Transplant: No Hx Hypertension: No Hx Internal Defibrillator: No Hx Mitral Valve Prolapse: No Hx Pacemaker: No Hx Peripheral Edema: No Hx Peripheral Vascular Disease: No - Pulmonary Hx Respiratory Disorders: No Hx Asthma: No Hx Bronchitis: No Hx Chronic Obstructive Pulmonary Disease (COPD): No Hx Emphysema: No Hx Pneumonia: No Hx Respiratory Aspiration: No Hx Respiratory Tract Infection: No Hx Sleep Apnea: No Hx Tuberculosis: No - Neurological Hx Neurological Disorder: No Hx Alzheimer's Disease: No HX Cerebrovascular Accident: No Hx Dementia: No Hx Dizziness: No Hx Meningitis: No Hx Migraine: No Hx Parkinson's Disease: No Hx Seizures: No Hx Transient Ischemic Attacks (TIA): No - HEENT Hx HEENT Disorder: No Hx Blind: No Hx Cataracts: No Hx Deafness: No Hx Difficulty Chewing: No Hx Epistaxis: No Hx Glaucoma: No Hx Macular Degeneration: No - Renal Hx Renal Disorder: No Hx Dialysis: No Hx Kidney Stones: No Hx Neurogenic Bladder: No Hx Pyelonephritis: No Hx Renal Cancer: No Hx Renal Failure: No - Endocrine/Metabolic Hx Endocrine Disorders: No Hx Adrenal Cancer: No Hx Diabetes Insipidus: No Hx Diabetes Mellitus Type 1: No Hx Diabetes Mellitus Type 2: No Hx Hyperthyroidism: No Hx Hypothyroidism: No Hx Systemic Lupus Erythematosus: No - Hematological/Oncological Hx Blood Transfusions: Yes Hx Blood Transfusion Reaction: No - Integumentary Hx Dermatological Disorder: No Hx Basal Cell Carcinoma: No Hx Eczema: No Hx Melanoma: No Hx Psoriasis: No Hx Squamous Cell Carcinoma: No - Musculoskeletal/Rheumatological Hx Musculoskeletal Disorders: Yes (Degenerative Joint Disease) Hx Arthritis: No Hx Back Pain: Yes Hx Degenerative Joint Disease: No Hx Falls: No Hx Fractures: No Hx Gout: No Hx Herniated Disk: No Hx Myasthenia Gravis: No Hx Osteoarthritis: No Hx Osteomyelitis: No Hx Osteoporosis: No Hx Rhabdomyolysis: No Hx Spinal Stenosis: No Hx Unsteady Gait: No - Gastrointestinal Hx Gastrointestinal Disorders: No Hx Colostomy: No Hx Crohn's Disease: No Hx Diverticulitis: No Hx Gall Bladder Disease: No Hx Gastroesophageal Reflux: No Hx Gastrointestinal Ulcer: No Hx Ileostomy: No Hx Liver Failure: No Hx Pancreatitis: No HX Swallowing Problems: No - Genitourinary/Gynecological Hx Genitourinary Disorders: No Hx Hematuria: No Hx Incontinence: No Hx Prostate Problems: No Hx Sexually Transmitted Diseases: No Hx Urinary Tract Infection: No - Psychiatric Hx Psychophysiologic Disorder: No Hx Anxiety: No Hx Bipolar Disorder: No Hx Depression: No Hx Emotional Abuse: No Hx Hallucinations: No Hx Panic Disorder: No Hx Post Traumatic Stress Disorder: No Hx Psychosis: No Hx Physical Abuse: No Hx Schizophrenia: No Hx Sexual Abuse: No Hx Substance Use: No - Surgical History Hx Amputation: No Hx Appendectomy: No Hx Cardiac Catheterization: No Hx Cholecystectomy: No Hx Coronary Stent: No Hx Gastric Bypass Surgery: No Hx Hysterectomy: No Hx Inguinal Hernia Repair: No Hx Joint Replacement: No Hx Kidney Transplant: No Hx Liver Transplant: No Hx Mastectomy: No Hx Musculoskeletal Surgery: No Hx Open Heart Surgery: No Hx Orthopedic Surgery: No Hx Splenectomy: No Hx Valve Replacement: No - Anesthesia Hx Anesthesia Reactions: No Hx Malignant Hyperthermia: No Family/Social History - Physician Review Nursing Documentation Reviewed: Yes Family/Social History: No Known Family HX Smoking Status: Light Smoker < 10 Cigarettes Daily Hx Alcohol Use: No Hx Substance Use: Yes (Marijuana) Allergies/Home Meds Allergies/Adverse Reactions: Allergies No Known Allergies Allergy (Verified 01/23/17 14:53) Home Medications: Home Meds Medication Instructions Recorded Confirmed Oxycodone HCl/Acetaminophen 1 each PO PRN PRN 07/13/17 07/13/17 [Percocet 10-325 mg Tablet] Review of Systems - Physician Review All systems were reviewed & negative as marked: Yes - Review of Systems Constitutional: absent: Fatigue, Fevers, Night Sweats Respiratory: absent: SOB, Cough, Sputum, Wheezing Cardiovascular: Chest Pain (chest "tightness"). absent: Palpitations, Syncope Gastrointestinal: absent: Abdominal Pain, Nausea, Vomiting Genitourinary Female: absent: Urine Output Changes Musculoskeletal: Back Pain (upper back pain), Neck Pain, Other (left arm pain radiating from upper back pain) Neurological: Other (some lightheadedness). absent: Headache, Dizziness, Focal Weakness, Gait Changes Endocrine: absent: Diaphoresis Physical Exam Vital Signs Reviewed: Yes Vital Signs Temp Pulse Resp BP Pulse Ox 07/13/17 10:33 71 18 142/72 100 07/13/17 08:02 98 F 86 16 154/92 H 99 07/13/17 07:49 98 F 86 16 154/92 H 99 Temperature: Afebrile Blood Pressure: Hypertensive Pulse: Regular Respiratory Rate: Normal Appearance: Positive for: Comfortable Pain Distress: Mild Mental Status: Positive for: Alert and Oriented X 3 - Systems Exam Head: Present: Atraumatic, Normocephalic Pupils: Present: PERRL Extroacular Muscles: Present: EOMI Conjunctiva: Present: Normal Mouth: Present: Moist Mucous Membranes Pharnyx: Present: Normal, ERYTHEMA, EXUDATE, TONSILS ENLARGED, Peritonsilar Swelling Neck: Present: Paraspinal Tenderness, Other (mild biltareal trapezius tenderness ). No: Meningeal Signs, MIDLINE TENDERNESS Respiratory/Chest: Present: Clear to Auscultation, Good Air Exchange, Tender to Palpation, Other (mild chest wall tenderness). No: Respiratory Distress, Accessory Muscle Use, Wheezes, Decreased Breath Sounds, Rales, Retracting, Rhonchi, Tachypneic Cardiovascular: Present: Regular Rate and Rhythm, Normal S1, S2. No: Murmurs Abdomen: Present: Normal Bowel Sounds. No: Tenderness, Distention, Peritoneal Signs, Rebound, Guarding Back: Present: Normal Inspection Upper Extremity: Present: Normal Inspection. No: Cyanosis, Edema Lower Extremity: Present: Normal Inspection. No: Edema, CALF TENDERNESS Neurological: Present: GCS=15, CN II-XII Intact, Speech Normal, Motor Func Grossly Intact Skin: Present: Warm, Dry, Normal Color. No: Rashes Psychiatric: Present: Alert, Oriented x 3, Normal Insight, Normal Concentration Medical Decision Making ED Course and Treatment: 07/13/17 08:10 Impression: 47 year old female with upper back pain radiating down left arm and into chest. Physical exam shows mild bilateral trapezius tenderness and mild chest wall tenderness. Plan: -- EKG -- Chest X-ray -- Chest CT -- Labs -- Toradol -- Reassess and disposition Prior Visits: Notes and results from previous visits were reviewed. Patient was last seen in the emergency department on 01/23/2017 for chest and back pain. Patient was admitted. Progress Notes: 07/13/17 09:09 EKG shows normal sinus rhythm rate approximately [address] or T-wave changes 07/13/2017 09:10 Chest X-ray IMPRESSION: No active disease. Dictator: Josué Olivarez MD 07/13/2017 10:[address] FINDINGS: PULMONARY ARTERIES: Examination grossly limited due to inadequate relative to contrast bolus. No large central pulmonary embolism within the main pulmonary artery or right or left pulmonary artery. Lobar and segmental vessels cannot be evaluated for filling defect on the basis of this examination. . AORTA: No acute findings. No thoracic aortic aneurysm. LUNGS: Unremarkable. No nodule, mass or pulmonary consolidation. PLEURAL SPACES: Unremarkable. No effusion or pneuomothorax. HEART: Mild cardiomegaly. LYMPH NODES: No lymphadenopathy. BONES, CHEST WALL: Mild lower thoracic dextroscoliotic curvature. No fracture. OTHER FINDINGS: Unremarkable. IMPRESSION: Grossly limited examination. Cannot exclude pulmonary embolism on the basis of this examination. No large central pulmonary embolism identified. No pulmonary infiltrate. Minor findings as above. Dictator: Josué Olivarez MD - Lab Interpretations Lab Results: 07/13/17 08:25 07/13/17 08:25 Lab Results 07/13/17 08:25: D-Dimer, Quantitative 0.64 H 07/13/17 08:25: Sodium 140, Potassium 3.9, Chloride 106, Carbon Dioxide 23, Anion Gap 15, BUN 9, Creatinine 0.6 L, Est GFR ( Amer) > 60, Est GFR (Non -Af Amer) > 60, Random Glucose 101, Calcium 8.9, Total Bilirubin 0.4, AST 29, ALT 27, Alkaline Phosphatase 94, Lactate Dehydrogenase 470, Total Creatine Kinase 113, Troponin I 0.06 D, Total Protein 7.7, Albumin 4.2, Globulin 3.5, Albumin/Globulin Ratio 1.2 07/13/17 08:25: WBC 5.8, RBC 3.96, Hgb 8.4 L, Hct 28.5 L, MCV 72.0 L, MCH 21.2 L , MCHC 29.5 L, RDW 19.1 H, Plt Count 275, MPV 9.9, Gran % 73.9 H, Lymph % (Auto ) 17.8 L, [place] % (Auto) 7.4 H, Eos % (Auto) 0.7 L, Baso % (Auto) 0.2, Gran # 4.32, Lymph # 1.0 L, [place] # 0.4, Eos # 0.0, Baso # 0.01 I have reviewed the lab results: Yes - RAD Interpretation Radiology Orders: 07/13/17 08:07 CHEST PORTABLE [RAD] Stat 07/13/17 09:04 ANGIO CHEST PE PROTOCOL [CT] Stat Chest one view shows no infiltrate effusion or cardiomegaly. Criminal Attorney: ED Physician - Medication Orders Current Medication Orders: Discontinued Medications Aspirin (Aspirin Chewable) 324 mg PO ONCE ONE Stop: 07/13/17 09:11 Last Admin: 07/13/17 09:18 Dose: 324 mg Ketorolac Tromethamine (Toradol) 30 mg IVP ONCE ONE Stop: 07/13/17 08:08 Last Admin: 07/13/17 08:20 Dose: 30 mg MAR Pain Assessment Document 07/13/17 08:20 SRE (Rec: 07/13/17 08:21 [place] [facility] [id number] Pain Reassessment Is this a pain reassessment? Yes Sleep Is patient sleeping during reassessment? Yes Pain Scale Used Pain Scale Used Numeric Location Pain Location Body Site Chest Description Description Intermittent IVP Administration Document 07/13/17 08:20 SRE (Rec: 07/13/17 08:21 [place] [facility] [id number] Charges for Administration # of IVP Administrations 1 Re-Assess: MAR Pain Assessment Document 07/13/17 09:20 SRE (Rec: 07/13/17 09:36 SRE [id number]) Pain Reassessment Is this a pain reassessment? Yes Sleep Is patient sleeping during reassessment? No Presence of Pain Presence of Pain Yes Pain Scale Used Pain Scale Used Numeric Location Pain Location Body Site Back - Scribe Statement The provider has reviewed the documentation as recorded by the Brenda Jones Provider Scribe Attestation: All medical record entries made by the Scribe were at my direction and personally dictated by me. I have reviewed the chart and agree that the record accurately reflects my personal performance of the history, physical exam, medical decision making, and the department course for this patient. I have also personally directed, reviewed, and agree with the discharge instructions and disposition. Disposition/Present on Arrival - Present on Arrival Any Indicators Present on Arrival: No History of DVT/PE: No History of Uncontrolled Diabetes: No Urinary Catheter: No History of Decub. Ulcer: No History Surgical Site Infection Following: None - Disposition Have Diagnosis and Disposition been Completed?: Yes Diagnosis: Chest pain, Anemia, Elevated troponin Disposition: HOSPITALIZED Disposition Time: 11:03 Patient Plan: Observation, Telemetry Condition: GOOD Discharge Instructions (ExitCare): Chest Pain (ED) Referrals: Candice Dumont, [Non-Staff] - Follow up with primary Forms: [employer]affix (Polish)
[2017-07-13 08:42] LABS: BASO # 0.01 K/mm3 (0.0-2.0); BASO % 0.2 % (0.0-3.0); EOS % 0.7 % (1.5-5.0); GRAN # 4.32 (1.4-6.5); GRAN % 73.9 % (50.0-68.0); HEMATOCRIT 28.5 % (36.0-48.0); LYMPH % 17.8 % (22.0-35.0); MEAN CORPUSCULAR HEMOGLOBIN 21.2 pg (25.0-35.0); MEAN CORPUSCULAR HGB CONC 29.5 g/dl (31.0-37.0); MEAN PLATELET VOLUME 9.9 fl (7.0-11.0); MONO # 0.4 (0.1-0.6); MONO % 7.4 % (1.0-6.0); RED CELL DISTRIBUTION WIDTH 19.1 % (11.5-14.5); WHITE BLOOD COUNT 5.8 10^3/ul (4.5-11.0)
[2017-07-13 08:52] LABS: ALB/GLOB RATIO 1.2 (1.1-1.8); ALKALINE PHOSPHATASE 94 U/L (38-126); ALT/SGPT 27 U/L (7-56); AST/SGOT 29 U/L (14-36); BILIRUBIN,TOTAL 0.4 mg/dL (0.2-1.3); BLOOD UREA NITROGEN 9 mg/dL (7-21); CALCIUM 8.9 mg/dL (8.4-10.5); CARBON DIOXIDE 23 mmol/L (21-33); CHLORIDE 106 mmol/L (98-107); GFR AFRICAN-AMERICAN > 60; GLUCOSE,RANDOM 101 mg/dL (70-110); POTASSIUM 3.9 mmol/L (3.6-5.0); SODIUM 140 mmol/L (132-148); TOTAL PROTEIN 7.7 g/dL (5.8-8.3)
[2017-07-13 09:03] LABS: TROPONIN I 0.06 ng/mL
--- NOTE | 2017-07-13 09:11 | RAD ---
HISTORY: cp COMPARISON: 01/23/2017 FINDINGS: LUNGS: No active pulmonary disease. PLEURA: No significant pleural effusion identified, no pneumothorax apparent. CARDIOVASCULAR: Normal. OSSEOUS STRUCTURES: No significant abnormalities. VISUALIZED UPPER ABDOMEN: Normal. OTHER FINDINGS: None. IMPRESSION: No active disease.
[2017-07-13] MEDS ORDERED: Iodixanol 320 MG/ML 100 ML BOTTLE IV ONE (09:35)
--- NOTE | 2017-07-13 10:51 | CT ---
PROCEDURE: CT Chest with contrast (Pulmonary Angiogram) HISTORY: elevated dimer COMPARISON: None available. TECHNIQUE: Axial computed tomography images were obtained of the chest in the pulmonary arterial phase of enhancement. Coronal and sagittal reformatted images were created and reviewed. Intravenous contrast dose: 100 mL Visipaque 320 Radiation dose: Total exam DLP = 608.51 mGy-cm. This CT exam was performed using one or more of the following dose reduction techniques: Automated exposure control, adjustment of the mA and/or kV according to patient size, and/or use of iterative reconstruction technique. FINDINGS: PULMONARY ARTERIES: Examination grossly limited due to inadequate relative to contrast bolus. No large central pulmonary embolism within the main pulmonary artery or right or left pulmonary artery. Lobar and segmental vessels cannot be evaluated for filling defect on the basis of this examination. . AORTA: No acute findings. No thoracic aortic aneurysm. LUNGS: Unremarkable. No nodule, mass or pulmonary consolidation. PLEURAL SPACES: Unremarkable. No effusion or pneuomothorax. HEART: Mild cardiomegaly. LYMPH NODES: No lymphadenopathy. BONES, CHEST WALL: Mild lower thoracic dextroscoliotic curvature. No fracture. OTHER FINDINGS: Unremarkable. IMPRESSION: Grossly limited examination. Cannot exclude pulmonary embolism on the basis of this examination. No large central pulmonary embolism identified. No pulmonary infiltrate. Minor findings as above.
--- NOTE | 2017-07-13 12:52 | CP.PCM.CON ---
<Cristiana Harperterrence - Last Filed: 07/13/17 13:23> History of Present Illness - History of Present Illness History of Present Illness: PGY4 Initial GI Consult Heydi Ramirez is a 47F w/ hx of anemia, gastric ulcers, and GAVE who presented to the ED with complaints of back pain and chest pain. Pt presented to the ER with similar complaints in 01/2017 and at that time was found to have microcytic anemia with hgb of 6.7. She was transfused and an EGD was performed dy Dr. Verdin. The EGD revealed GAVE, and prepyloric ulcer (clean based). Pt was told to continue PPI and have a repeat EGD in 2 months to follow-up the ulcer. Pt at that was also given IRON infusions. She states that she had followed up with her own GI physician, Dr Mansfield. As per pt, she had a colonoscopy 2 months ago for her microcytic anemia and there were no signicifant findings. She does not report any melna, hematemesis, or coffee-ground emesis. Denies any abd pain. She reports heavy menses. Her hgb on admission was ~9 which seems to be her baseline for 1 year. Pmh: back pain, sciatica, anemia Psh: ovarian cyst removal 4mo ago All: NKA SH: active smoker, denies drinking and drugs FH: grand mother with heart dx and from stroke ENdoscopy hx: EGD : GAVE prepylori gastric ulcer; colonscopy 03/2017 No findings as per pt ROS: 12-point ROS conducted neg other than above Past Patient History - Infectious Disease Hx of Infectious Diseases: None - Past Social History Smoking Status: Light Smoker < 10 Cigarettes Daily - CARDIAC Hx Cardiac Disorders: No Hx Angina: No Hx Cardia Arrhythmia: No Hx Circulatory Problems: No Hx Congestive Heart Failure: No Hx Heart Murmur: No Hx Heart Transplant: No Hx Hypertension: No Hx Internal Defibrillator: No Hx Mitral Valve Prolapse: No Hx Pacemaker: No Hx Peripheral Edema: No Hx Peripheral Vascular Disease: No - PULMONARY Hx Respiratory Disorders: No Hx Asthma: No Hx Bronchitis: No Hx Chronic Obstructive Pulmonary Disease (COPD): No Hx Emphysema: No Hx Pneumonia: No Hx Respiratory Aspiration: No Hx Respiratory Tract Infection: No Hx Sleep Apnea: No Hx Tuberculosis: No - NEUROLOGICAL Hx Neurological Disorder: No Hx Alzheimer's Disease: No HX Cerebrovascular Accident: No Hx Dementia: No Hx Dizziness: No Hx Meningitis: No Hx Migraine: No Hx Parkinson's Disease: No Hx Seizures: No Hx Transient Ischemic Attacks (TIA): No - HEENT Hx HEENT Problems: No Hx Blind: No Hx Cataracts: No Hx Deafness: No Hx Difficulty Chewing: No Hx Epistaxis: No Hx Glaucoma: No Hx Macular Degeneration: No - RENAL Hx Chronic Kidney Disease: No Hx Dialysis: No Hx Kidney Stones: No Hx Neurogenic Bladder: No Hx Pyelonephritis: No Hx Renal (Kidney) Cancer: No Hx Renal Failure: No - ENDOCRINE/METABOLIC Hx Endocrine Disorders: No Hx Adrenal Cancer: No Hx Diabetes Insipidus: No Hx Diabetes Mellitus Type 1: No Hx Diabetes Mellitus Type 2: No Hx Hyperthyroidism: No Hx Hypothyroidism: No Hx Systemic Lupus Erythematosus: No - HEMATOLOGICAL/ONCOLOGICAL Hx Blood Transfusions: Yes Hx Blood Transfusion Reaction: No - INTEGUMENTARY Hx Dermatological Problems: No Hx Basil Cell: No Hx Eczema: No Hx Melanoma: No Hx Psoriasis: No Hx Squamous Cell: No - MUSCULOSKELETAL/RHEUMATOLOGICAL Hx Musculoskeletal Disorders: Yes (Degenerative Joint Disease) Hx Arthritis: No Hx Back Pain: Yes Hx Degenerative Joint Disease: No Hx Falls: No Hx Fractures: No Hx Gout: No Hx Herniated Disk: No Hx Myasthenia Gravis: No Hx Osteoarthritis: No Hx Osteomyelitis: No Hx Osteoporosis: No Hx Rhabdomyolysis: No Hx Spinal Stenosis: No Hx Unsteady Gait: No - GASTROINTESTINAL Hx Gastrointestinal Disorders: No Hx Colostomy: No Hx Crohn's Disease: No Hx Diverticulitis: No Hx Gall Bladder Disease: No Hx Gastroesophageal Reflux: No Hx Ileostomy: No Hx Liver Failure: No Hx Pancreatitis: No HX Swallowing Problems: No - GENITOURINARY/GYNECOLOGICAL Hx Genitourinary Disorders: No Hx Hematuria: No Hx Incontinence: No Hx Sexually Transmitted Disorders: No Hx Urinary Tract Infection: No - PSYCHIATRIC Hx Psychophysiologic Disorder: No Hx Anxiety: No Hx Bipolar Disorder: No Hx Depression: No Hx Emotional Abuse: No Hx Hallucinations: No Hx Panic Symptoms: No Hx Post Traumatic Stress Disorder: No Hx Psychosis: No Hx Physical Abuse: No Hx Schizophrenia: No Hx Sexual Abuse: No Hx Substance Use: Yes (Marijuana) - SURGICAL HISTORY Hx Amputation: No Hx Appendectomy: No Hx Cardiac Catheterization: No Hx Cholecystectomy: No Hx Coronary Stent: No Hx Gastric Bypass Surgery: No Hx Hysterectomy: No Hx Joint Replacement: No Hx Kidney Transplant: No Hx Liver Transplant: No Hx Mastectomy: No Hx Musculoskeletal Surgery: No Hx Open Heart Surgery: No Hx Orthopedic Surgery: No Hx Splenectomy: No Hx Valve Replacement: No - ANESTHESIA Hx Anesthesia Reactions: No Hx Malignant Hyperthermia: No Meds Allergies/Adverse Reactions: Allergies Allergy/AdvReac Type Severity Reaction Status Date / Time No Known Allergies Allergy Verified 01/23/17 14:53 - Medications Medications: Current Medications Ketorolac Tromethamine (Toradol) 30 mg IVP Q6H PRN PRN Reason: Pain, moderate (4-7) Physical Exam - Constitutional Appears: Well, No Acute Distress - Head Exam Head Exam: ATRAUMATIC, NORMOCEPHALIC - Eye Exam Eye Exam: Normal appearance - ENT Exam ENT Exam: Mucous Membranes Moist - Respiratory Exam Respiratory Exam: Clear to Auscultation Bilateral, NORMAL BREATHING PATTERN. absent: Rales, Rhonchi, Wheezes, Respiratory Distress - Cardiovascular Exam Cardiovascular Exam: REGULAR RHYTHM, +S1, +S2 - GI/Abdominal Exam GI & Abdominal Exam: Normal Bowel Sounds, Soft. absent: Distended, Firm, Guarding, Hernia, Organomegaly, Rigid, Tenderness - Extremities Exam Extremities exam: Negative for: joint swelling, pedal edema - Neurological Exam Neurological exam: Alert, Oriented x3 - Psychiatric Exam Psychiatric exam: Normal Affect, Normal Mood - Skin Skin Exam: Dry, Intact, Normal Color, Warm Results - Vital Signs Recent Vital Signs: Last Vital Signs Temp 98 F 07/13/17 08:02 Pulse 71 07/13/17 10:33 Resp 18 07/13/17 10:33 BP 142/72 07/13/17 10:33 Pulse Ox 100 07/13/17 10:33 - Labs Result Diagrams: 07/13/17 08:25 07/13/17 08:25 Assessment & Plan - Assessment and Plan (Free Text) Assessment: Heydi Ramirez is a 47F w/ hx of anemia, GAVE, gastric ulcer who presented with back pain and chest pain. She was found to have a hgb of 8.4 with a baseline hgb of 9. She does not report any active GI loss and recently had a colonscopy as an oupt 2 months ago withou any sig finding. Microcytic anemia DDx: GI loss from GAVE? vs Menses vs hematologic Microcytic anemia hx of gastric ulcer hx of GAVE Plan: -Pt is actively being followed by Dr. Mansfield (GI physcian) -As per pt, she is eventually supposed to get a small capsule as per Dr. Mansfield to complete her GI eval -No emergent GI procedure indicated at this time -can offer cryotherapy for her GAVE, if pt desires or she may f/u with her GI physician -Iron Studies -monitor H/h -would recommend Hem consult as oupt -f/u with [employer] for heavy menses D/W Dr. Parrish <Larry Parrish - Last Filed: 07/13/17 21:20> Meds - Medications Medications: Current Medications Ketorolac Tromethamine (Toradol) 30 mg IVP Q6H PRN PRN Reason: Pain, moderate (4-7) Last Admin: 07/13/17 17:30 Dose: 30 mg Tramadol HCl (Ultram) 50 mg PO TID PRN PRN Reason: Pain, moderate (4-7) Results - Vital Signs Recent Vital Signs: Last Vital Signs Temp 98.2 F 07/13/17 18:00 Pulse 74 07/13/17 18:00 Resp 18 07/13/17 18:00 BP 142/84 07/13/17 18:00 Pulse Ox 100 07/13/17 10:33 - Labs Result Diagrams: 07/13/17 08:25 07/13/17 08:25 Attending/Attestation - Attestation I have personally seen and examined this patient.: Yes I have fully participated in the care of the patient.: Yes I have reviewed all pertinent clinical information: Yes Notes (Text): 07/13/17 21:19 47 year old female with h/o GAVE who is admitted with anemia. 1. Gastric antral vascular ectasia 2. Iron deficiency anemia Plan: -supportive measures -continue daily ppi -recommend outpatient egd with ablation or apc therapy -continue iron supplementation -no plans for inpatient intervention at this time
--- NOTE | 2017-07-13 13:53 | NM ---
COMPARISON: Portable chest and chest CT 07/13/2017 TECHNIQUE: 33.0 mCi technetium 99-m DTPA aerosol. 4.3 mCI technetium 99-m MAA administered intravenously. FINDINGS: VENTILATION COMPONENT: Normal. PERFUSION COMPONENT: Normal. IMPRESSION: Lowprobability ventilation perfusion scan for pulmonary embolism.
--- NOTE | 2017-07-13 15:20 | US ---
HISTORY: Leg pain and swelling. Evaluate for DVT PHYSICIAN(S): Josué Iyer MD. TECHNIQUE: Duplex sonography and color-flow Doppler with graded compression were used to evaluate the deep venous systems of both lower extremities. FINDINGS: The visualized deep venous systems of both lower extremities are sonographically normal and compressible. Normal wave forms and augmentation are seen. There is no sonographic evidence for deep venous thrombosis in the visualized segments of both lower extremities. IMPRESSION: No sonographic evidence for deep venous thrombosis in the visualized segments of both lower extremities.
[2017-07-13 16:00] VITALS: BMI 32.8
--- NOTE | 2017-07-13 18:44 | HP ---
HISTORY OF PRESENT ILLNESS: I was called on to the emergency room, I am on-call today, for this 47-year-old, who presents with pain in the chest, left arm tightness when she takes a deep breath. She takes some gas medication at home, which is not too much. She has had this for two days on and off and when it did not go away she decided to come to the emergency room. She has just been out to chair. She is comfortable right now sitting in bed in the gurney. PAST MEDICAL HISTORY: Sciatica, also anemia. She has had transfusions in the past. She has had back pain and degenerative joint disease in the past. PRIMARY CARE DOCTOR: Dr. Harkins. FAMILY HISTORY: No known family history. SOCIAL HISTORY: She still smokes cigarettes. Smokes marijuana. No alcohol. ALLERGIES: NO KNOWN DRUG ALLERGIES. MEDICATIONS: I found out now that she takes Percocet 10/325 mg; I am not sure where she gets them from. REVIEW OF SYSTEMS: No fatigue, no fever, no night sweats. No shortness of breath, coughing, or wheezing. There is chest tightness, left-sided chest pain. No palpitations. Some abdominal pain, nausea, and vomiting, better now. No problems urinating. Feels like with back pain with the left arm pain, a little bit of lightheadedness. No headache or dizziness. No sweating. Skin for the most part is intact. PHYSICAL EXAMINATION: VITAL SIGNS: She has a 98 temperature, 86 pulse, 16 respiratory rate, 154/92 blood pressure, came down to 142/72 blood pressure; 100% O2 sat. GENERAL: She is alert, comfortable, oriented. No complaints at this time. HEENT: Head is atraumatic, normocephalic. Extraocular muscles are intact. Pupils are equally reactive to light and accommodation. Throat is moist. NECK: Supple at this time. Nontender at this time. No meningeal signs. LUNGS: Clear to auscultation bilaterally. No wheezing, no rhonchi, no rales. HEART: Regular rate. Normal S1 and S2. ABDOMEN: Soft, nontender. Positive bowel sounds. EXTREMITIES: With no edema. NEUROLOGIC: GCS is 15. Cranial nerves II through XII grossly intact. Normal function of extremities. Alert and oriented x3. SKIN: Warm and dry. No ulcers appreciated. LYMPHATICS: Thyroid midline. No palpable appreciable lymphadenopathy. LABORATORY DATA: She had a puncture test in the ER. She had a D-dimer of 0.64. She is getting a CAT scan and angio. She has 140 sodium, potassium 3.9, BUN 9, and creatinine 0.6. GFR is greater than 60. Sugar is 101. Calcium is 8.9. Total bilirubin is 0.4, AST is 29, ALT is 27. Alkaline phosphatase 94, troponin 1 and 0.06, intermediate, total protein 7.7, albumin is 4.2. White count is 5.8, hemoglobin is 8.4. She has been chronically anemic, she says for years with 20.5 hematocrit with 275 platelets. She had a CT chest, which showed cannot exclude pulmonary embolism. ASSESSMENT AND PLAN: I called in Pulmonary, I called in Cardiology, I called in Gastroenterology. She will be on observation. We will check her stools. We will check her troponins. We will check her labs. She will have some medicine for pain. She will be on Toradol IV. I asked her if she has any pain issues. She is just here for chest pain, observation, rule out myocardial infraction, also pulmonary embolism. Doug Carcamo DO
--- NOTE | 2017-07-13 20:44 | CON ---
PULMONARY CONSULTATION DATE: 07/13/2017 REASON FOR CONSULTATION: Rule out pulmonary embolism. REFERRING PHYSICIAN: Dogu Carcamo DO HISTORY OF PRESENT ILLNESS: The patient is a 47-year-old female, with past medical history significant for sciatica, who presents to [facility] with increasing upper back pain for the past 2 days. The patient states that her back pain radiates down her left arm and into her chest. Patient also states there was some mild shortness of breath earlier this morning, which has now resolved. There is no history of cough or sputum production. There is no history of hemoptysis. Patient does state that her back pain worsened with deep respirations. There is no history of temperatures, chills, or infectious exposure. There is no history of night sweats, weight loss, or appetite change prior to the above events. No history of leg or calf pains. No history of syncope or diaphoresis. No history of recent travel or trauma. REVIEW OF SYSTEMS: No history of nausea, vomiting or diarrhea. No acute urinary symptoms. No new neurologic complaints. Rest of the review of systems negative. ALLERGIES: NO KNOWN ALLERGIES. SOCIAL HISTORY: Positive for tobacco, negative for alcohol. FAMILY HISTORY: No inheritable diseases. No history of clotting disorders. HOME MEDICATIONS: Include oxycodone. PHYSICAL EXAMINATION: GENERAL: The patient appears comfortable at rest. She is not short of breath. She is not using accessory muscles for breathing. VITAL SIGNS: Temperature is 98.0, pulse 71, respirations 18, blood pressure 142/72. Oxygen saturation on room air is 100%. HEENT: Normocephalic and atraumatic. No JVD. CARDIOVASCULAR: Positive S1, S2. No S3. LUNGS: Clear bilaterally. EXTREMITIES: No clubbing, cyanosis, or edema. Calves are nontender to palpation. GASTROINTESTINAL: Abdomen is soft, nontender, nondistended. Bowel sounds are positive. SKIN: No acute rash. NEUROLOGIC: Limited at the present time. PERTINENT LABORATORY DATA: CAT scan of the chest was done earlier as an angiogram protocol. It is read by Dr. Olivarez (Radiology)-- that the study is a grossly limited examination. There are no large central pulmonary emboli noted. There is no nodule, mass, or pulmonary consolidation noted. There is no lymphadenopathy noted. CBC: White count 5.8, hemoglobin 8.4, hematocrit 28.5, platelets of 275. D-dimer 0.64. Complete metabolic profile: Creatinine 0.6. Troponin 0.06. Rest of the profile is within normal limits. IMPRESSION: 1. Back/Chest pain. 2. Anemia. 3. Intermediate troponin. 4. Hypertension. PLAN: I did discuss the case with Dr. Richter (emergency room) at length. I have also talked to the patient at length, and reviewed the chart at length. The patient presents to [facility] with main complaint of increasing back pain for 2 days. As above, she states that the back pain radiates down her left arm and into her chest. She also stated to some shortness of breath earlier this morning, which has currently resolved. I did review the CAT scan of the chest as above. The CAT scan reveals no evidence of a large pulmonary embolism. The CAT scan also reveals no evidence of pulmonary nodule, lung mass or pulmonary consolidation. Unfortunately, as per Dr. Olivarez, it is a grossly limited evaluation. Plan at this point will be to proceed with a ventilation-perfusion scan, and Doppler ultrasound of both legs - to try and definitively rule in or rule out pulmonary embolism. I have also reviewed the laboratory data. Significant anemia and intermediate troponin are noted. Cardiology evaluation with Dr. Lucas has also been ordered. On physical exam, her lungs are clear. Oxygen saturation on room air is 100%. She does feel better at the time of my examination, and is clinically improved this morning. Additional pulmonary intervention will be based on the above results, as well as the clinical status of the patient. I did discuss the above with Dr. Carcamo at length. Thank you very much for this pulmonary consultation. Efraín Maier MD RICA
--- NOTE | 2017-07-13 22:12 | CARD ---
APPROVED REPORT EKG Measurement Heart [id number] [id number] <Conclusion> Normal sinus rhythm Normal ECG
[2017-07-14 00:16] VITALS: RESP 20
[2017-07-14 06:42] LABS: MEAN CELL VOLUME 71.8 fl (80.0-105.0); MEAN CORPUSCULAR HEMOGLOBIN 21.1 pg (25.0-35.0); MEAN CORPUSCULAR HGB CONC 29.3 g/dl (31.0-37.0); MEAN PLATELET VOLUME 10.4 fl (7.0-11.0); RED CELL DISTRIBUTION WIDTH 19.4 % (11.5-14.5); WHITE BLOOD COUNT 4.5 10^3/ul (4.5-11.0)
[2017-07-14 07:55] LABS: ALB/GLOB RATIO 1.1 (1.1-1.8); ALKALINE PHOSPHATASE 90 U/L (38-126); ALT/SGPT 37 U/L (7-56); AST/SGOT 31 U/L (14-36); BILIRUBIN,TOTAL 0.6 mg/dL (0.2-1.3); BLOOD UREA NITROGEN 7 mg/dL (7-21); CALCIUM 8.9 mg/dL (8.4-10.5); CARBON DIOXIDE 23 mmol/L (21-33); CHLORIDE 108 mmol/L (95-110); GFR AFRICAN-AMERICAN > 60; GLUCOSE,RANDOM 92 mg/dL (70-110); POTASSIUM 3.6 mmol/L (3.6-5.0); SODIUM 141 mmol/L (132-148); TOTAL PROTEIN 7.5 g/dL (5.8-8.3)
[2017-07-14 08:09] LABS: IRON 23 ug/dL (45-180)
[2017-07-14 08:15] LABS: TROPONIN I 0.17 ng/mL
--- NOTE | 2017-07-14 08:23 | CON ---
DATE: 07/13/2017 CARDIOLOGY CONSULTATION HISTORY OF PRESENT ILLNESS: The patient is a 47-year-old woman who presents with infrascapular discomfort with radiation to left shoulder. No chest pain noted. PAST MEDICAL HISTORY: Notable for hypercholesterolemia, mild hypertension, as well as anemia. The patient's past medical history includes a history of borderline elevated troponins, which she underwent cardiac catheterization in 01/2017. The findings on catheterization revealed unremarkable coronary arteries and normal LV function. SOCIAL HISTORY: The patient continues to smoke pot. No tobacco use noted. REVIEW OF SYSTEMS: A 14-point review of systems was reviewed. No cardiac symptomatology noted. PHYSICAL EXAMINATION: VITAL SIGNS: Blood pressure is 142/72 with heart rates in the 70s. NECK: Negative JVD. LUNGS: Without rales. HEART: S1, S2. EXTREMITIES: Without edema. DIAGNOSTIC DATA: EKG is unremarkable. LABORATORY DATA: Reveals a troponin of 0.06, compared to her troponins of 0.11 during her previous hospitalization, which coincided with normal coronary arteries. Hemoglobin is 8.4. IMPRESSION: 1. Back pain and atypical chest pain. 2. No evidence for acute coronary syndrome. 3. History of normal coronary arteries performed in 01/2017 associated with mildly elevated troponins. 4. Anemia. 5. History of hypertension. PLAN: Given these findings, we will obtain a troponin in the morning. No further cardiac workup is necessary unless the troponins are elevated. Josué Lucas MD
--- NOTE | 2017-07-14 08:28 | PN ---
SUBJECTIVE: The patient appears very comfortable this morning. She is not short of breath at rest. She has much less back pain, and no chest pain. PHYSICAL EXAMINATION: VITAL SIGNS: Temperature is 98.6, pulse 74, respirations 18, blood pressure 127/89. Oxygen saturation on room air is 98% to 100%. HEENT: Normocephalic, atraumatic. NECK: No JVD. CARDIOVASCULAR: Positive S1, S2. No S3 gallop. LUNGS: Clear bilaterally. EXTREMITIES: No clubbing, cyanosis or edema. Calves are nontender to palpation. GASTROINTESTINAL: Abdomen is soft, nontender and nondistended. Bowel sounds are positive. SKIN: No acute rash. NEUROLOGIC: Limited at the present time. PERTINENT LABORATORY DATA: Ventilation-perfusion scan was done yesterday and reviewed. The ventilation component is normal. The perfusion component is normal. It is read by Dr. Johnson as a low-probability ventilation-perfusion scan for pulmonary embolism. Extremity ultrasound was also done. There is no evidence for deep venous thrombosis in either of the lower extremities. IMPRESSION: 1. Back pain/chest pain-resolving. 2. Anemia. 3. Intermediate troponin. 4. Hypertension. PLAN: The patient appears very comfortable this morning. She is not short of breath at rest. She has much less back pain, and no chest pain. She does state to feeling much, much better overall. The patient also had a ventilation- perfusion scan, as well as Doppler ultrasound on both legs done yesterday. There is no evidence for venous thromboembolism. On physical exam, the patient's lungs remain clear. Oxygen saturation on room air is 98% to 100%. Input from GI is noted. Cardiology evaluation is also pending. Clinical status of the patient is significantly improved overall. I will discuss the above with Dr. Carcamo. Efraín Maier MD MTDD
--- NOTE | 2017-07-14 09:24 | PN ---
DATE: SUBJECTIVE: I saw her resting in bed. She slept fairly well. She was seen by Cardiology who is waiting for the rest of the troponins to come in and GI. I understand that the troponin remains positive this morning that means she might have a catheterization tomorrow for her chest pain and her abdominal pain. GI recommended heme consult on the outpatient. PHYSICAL EXAMINATION: VITAL SIGNS: Her vital signs are 98.6 temperature, 74 pulse, 127/89 and 124/78 blood pressures, 20 respiratory rate, 98% on O2 saturation on room air. HEENT: Her head is atraumatic and normocephalic. HEART: Regular rate. LUNGS: Clear to auscultation. ABDOMEN: Soft. EXTREMITIES: No edema. MEDICATIONS: She is currently on Toradol and Ultram. LABORATORY DATA: She has 141 sodium, potassium 3.6, BUN 7, creatinine 0.6, GFR is greater than 60, sugar is 92, calcium is 8.9, total bilirubin is 0.6, troponin was 0.06 yesterday it bumped to 0.17 now, and her total protein is 7.5. I will let Dr. Lucas, rope maker now. She has also been seen by Dr. Maier, the bulk station agent. She had a lung scan, which is a low probability for pulmonary embolism and now we are dealing with possible [id number] myocardial infarction. Doug Carcamo DO
[2017-07-14 10:10] LABS: CHOLESTEROL 184 mg/dL (130-200)
[2017-07-14 10:43] LABS: THYROID STIMULATING HORMONE 0.89 mIU/mL (0.46-4.68)
--- NOTE | 2017-07-14 17:29 | PN ---
CARDIOLOGY FOLLOWUP DATE: 07/14/2017 SUBJECTIVE: The patient presented with chest pain. Her laboratories once again revealed an elevation of her troponins from 0.06-0.17. PHYSICAL EXAMINATION: GENERAL: The patient is asymptomatic. VITAL SIGNS: Blood pressure is 127/89, heart rate in the 70s. NECK: Negative JVD. LUNGS: Without rales. HEART: Reveal S1, S2. EXTREMITIES: Without edema. LABORATORY MOODY: As noted. IMPRESSION: 1. Recurrent chest pain. 2. Recurrent [id number] myocardial infarction. 3. High probability for coronary artery disease. PLAN: Given these findings, I have discussed with the patient again about her course. Despite recent catheterization in January which showed no critical lesions, her elevated troponin, we will necessitate repeat catheterization. I have discussed the risks and benefits with the patient in detail. The patient is agreeable. Josué Lucas MD
[2017-07-15 05:53] LABS: HEMATOCRIT 28.9 % (36.0-48.0); MEAN CORPUSCULAR HEMOGLOBIN 20.9 pg (25.0-35.0); MEAN CORPUSCULAR HGB CONC 29.4 g/dl (31.0-37.0); MEAN PLATELET VOLUME 10.4 fl (7.0-11.0); RED CELL DISTRIBUTION WIDTH 18.7 % (11.5-14.5); WHITE BLOOD COUNT 4.4 10^3/ul (4.5-11.0)
[2017-07-15 06:18] LABS: ALB/GLOB RATIO 1.1 (1.1-1.8); ALKALINE PHOSPHATASE 86 U/L (38-126); ALT/SGPT 28 U/L (7-56); AST/SGOT 35 U/L (14-36); BILIRUBIN,TOTAL 0.3 mg/dL (0.2-1.3); BLOOD UREA NITROGEN 10 mg/dL (7-21); CALCIUM 8.9 mg/dL (8.4-10.5); CARBON DIOXIDE 23 mmol/L (21-33); CHLORIDE 110 mmol/L (98-107); GFR AFRICAN-AMERICAN > 60; GLUCOSE,RANDOM 92 mg/dL (70-110); SODIUM 141 mmol/L (132-148); TOTAL PROTEIN 7.3 g/dL (5.8-8.3)
[2017-07-15] MEDS ORDERED: Lidocaine 2% Inj (20ml) ONE (08:34)
[2017-07-15] MEDS ORDERED: Iohexol 350mgl/ml 50 ML ONE (08:34)
[2017-07-15] MEDS ORDERED: Iodixanol 320 MG/ML 200 ML BOTTLE IV ONE (08:35)
--- NOTE | 2017-07-15 09:09 | PN ---
PULMONARY NOTE DATE: 07/15/2017 SUBJECTIVE: The patient appears comfortable at rest. She is not short of breath. She has less back pain. OBJECTIVE: VITAL SIGNS: Temperature is 97.6, pulse 76, respirations 18/20, and blood pressure 125/85. Oxygen saturation on room air is 98%. HEENT: Normocephalic and atraumatic. NECK: No JVD. CARDIOVASCULAR: Positive S1 and S2. No S3 or gallop. LUNGS: Clear bilaterally. EXTREMITIES: No clubbing, cyanosis, or edema. Calves are nontender to palpation. GASTROINTESTINAL: Abdomen is soft, nontender, and nondistended. Bowel sounds are positive. SKIN: No acute rash. NEUROLOGIC: Limited at the present time. PERTINENT LABORATORY DATA: Peak troponin over the past 24 hours - 0.17. CBC: White count 4.4, hemoglobin 8.5, hematocrit 28.9, and platelets of 284,000. IMPRESSION: 1. Back pain/chest pain - resolving. 2. Anemia. 3. Positive troponin. 4. Hypertension. PLAN: The patient appears comfortable this morning. She is not short of breath at rest. She has less back pain. She has no chest pain. She does state to feeling much better overall. As noted in yesterday's assessment, the workup for venous thromboembolism has been negative. However, there was a rise in the troponin over the past [address] Lucas (Cardiology) is noted. The patient is for cardiac catheterization later today. Clinical status of the patient is significantly improved. I will discuss the above with the attending physician. Efraín Maier MD RICA
[2017-07-15] MEDS ORDERED: Midazolam 2 MG/2 ML VIAL ONE ×2 (10:25→10:34)
[2017-07-15] MEDS ORDERED: Sodium Chloride 0.9% 1,000 ML IV SCH (11:00)
--- NOTE | 2017-07-15 11:21 | CARDCATH ---
PROCEDURE DATE: 07/15/2017 HISTORY: The patient is a 47-year-old woman who presents with multiple episodes of chest discomfort as well as total body ache. Her troponins which were borderline elevated in the past, peaked yesterday up to 0.17. Because of these findings, repeat catheterization was recommended. PROCEDURE: Left heart catheterization with coronary angiography and left ventriculogram with supraaortic valvular injection. The right femoral artery was cannulated with 6-Armenian sheath. There were no complications. FINDINGS: The findings on catheterization revealed left main artery that was unremarkable. The LAD and diagonal vessels revealed intimal irregularities without significant stenoses. The circumflex artery revealed intimal irregularities without significant stenoses. The right coronary artery was selectively cannulized and found to be a dominant vessel. There were intimal irregularities throughout its course with the distal vessels with pruning and likely to have small-vessel disease. Supraaortic valvular injection revealed no aortic insufficiency. Left ventriculogram was performed in the ARIAS projection, the LV function is normal and estimated ejection fraction is 60%. Manual compression was used to close the femoral artery site. The patient tolerated the procedure well. In summary, the procedure revealed mild atherosclerosis in her coronary tree with no critical discrete lesions. LV function is normal. There is no AI. Given these findings, the patient's mildly elevated troponin may represent distal RCA and small-vessel disease. We will treat her medically with daily aspirin and a cardiac risk reduction program. The patient can be discharged today. Josué Lucas MD
[2017-07-15 16:58] VITALS: BP 116/76; TEMP 98.7; O2SAT 100
[2017-07-15 17:25] VITALS: PULSE 101
--- NOTE | 2017-07-15 20:17 | CP.PCM.DIS ---
Provider - Provider Date of Admission: 07/15/17 10:50 Attending physician: Doug Carcamo DO Primary care physician: Sunil Harkins MD Time Spent in preparation of Discharge (in minutes): 30 Diagnosis - Discharge Diagnosis (1) Atypical chest pain Status: Resolved Comment: S/P Cardiac Cath with Normal Coronaries. ACS Ruled Out Hospital Course - Lab Results Lab Results: Most Recent Lab Values WBC 4.4 10^3/ul (4.5-11.0) L 07/15/17 05:20 RBC 4.07 10^6/uL (3.5-6.1) 07/15/17 05:20 Hgb 8.5 g/dL (12.0-16.0) L 07/15/17 05:20 Hct 28.9 % (36.0-48.0) L 07/15/17 05:20 MCV 71.0 fl (80.0-105.0) L 07/15/17 05:20 MCH 20.9 pg (25.0-35.0) L 07/15/17 05:20 MCHC 29.4 g/dl (31.0-37.0) L 07/15/17 05:20 RDW 18.7 % (11.5-14.5) H 07/15/17 05:20 Plt Count 284 10^3/uL (120.0-450.0) 07/15/17 05:20 MPV 10.4 fl (7.0-11.0) 07/15/17 05:20 Gran % 73.9 % (50.0-68.0) H 07/13/17 08:25 Lymph % (Auto) 17.8 % (22.0-35.0) L 07/13/17 08:25 Hill % (Auto) 7.4 % (1.0-6.0) H 07/13/17 08:25 Eos % (Auto) 0.7 % (1.5-5.0) L 07/13/17 08:25 Baso % (Auto) 0.2 % (0.0-3.0) 07/13/17 08:25 Gran # 4.32 (1.4-6.5) 07/13/17 08:25 Lymph # 1.0 (1.2-3.4) L 07/13/17 08:25 Hill # 0.4 (0.1-0.6) 07/13/17 08:25 Eos # 0.0 (0.0-0.7) 07/13/17 08:25 Baso # 0.01 K/mm3 (0.0-2.0) 07/13/17 08:25 D-Dimer, Quantitative 0.64 mg/L FEU (0-0.50) H 07/13/17 08:25 Sodium 141 mmol/L (132-148) 07/15/17 05:20 Potassium 4.0 mmol/L (3.6-5.0) 07/15/17 05:20 Chloride 110 mmol/L (98-107) H 07/15/17 05:20 Carbon Dioxide 23 mmol/L (21-33) 07/15/17 05:20 Anion Gap 12 (10-20) 07/15/17 05:20 BUN 10 mg/dL (7-21) 07/15/17 05:20 Creatinine 0.7 mg/dL (0.7-1.2) 07/15/17 05:20 Est GFR ( Amer) > 60 07/15/17 05:20 Est GFR (Non-Af Amer) > 60 07/15/17 05:20 Random Glucose 92 mg/dL (70-110) 07/15/17 05:20 Calcium 8.9 mg/dL (8.4-10.5) 07/15/17 05:20 Iron 23 ug/dL (45-180) L 07/14/17 06:00 TIBC 436 ug/dL (265-497) 07/14/17 06:00 % Saturation 5 % (20-55) L 07/14/17 06:00 Total Bilirubin 0.3 mg/dL (0.2-1.3) 07/15/17 05:20 AST 35 U/L (14-36) 07/15/17 05:20 ALT 28 U/L (7-56) 07/15/17 05:20 Alkaline Phosphatase 86 U/L (38-126) 07/15/17 05:20 Lactate Dehydrogenase 470 U/L (333-699) 07/13/17 08:25 Total Creatine Kinase 113 U/L (35-230) 07/13/17 08:25 Troponin I 0.17 ng/mL H* D 07/14/17 06:00 C-React Prot High Sens 1.84 mg/L (1.00-3.00) 07/14/17 07:30 Total Protein 7.3 g/dL (5.8-8.3) 07/15/17 05:20 Albumin 3.9 g/dL (3.0-4.8) 07/15/17 05:20 Globulin 3.4 gm/dL 07/15/17 05:20 Albumin/Globulin Ratio 1.1 (1.1-1.8) 07/15/17 05:20 Triglycerides 153 mg/dL (35-160) 07/14/17 07:30 Cholesterol 184 mg/dL (130-200) 07/14/17 07:30 LDL Cholesterol Direct 86 mg/dL (0-129) 07/14/17 07:30 HDL Cholesterol 48 mg/dL (29-60) 07/14/17 07:30 TSH 3rd Generation 0.89 mIU/mL (0.46-4.68) 07/14/17 07:30 - Hospital Course Hospital Course: A 47yoF presented with Left sided chest pain with radiation to the left Arm and Shoulder, and Troponin Trended Up from 0.06 to 0.17, nd OBs covered to admission for NSTEMI. Cardiiac Cath showed Normal coronaries today, and Business Supervisor cleared her for D/C Home Discharge Exam - Head Exam Head Exam: ATRAUMATIC, NORMOCEPHALIC - Eye Exam Eye Exam: EOMI, Normal appearance, PERRL Pupil Exam: NORMAL ACCOMODATION, PERRL - ENT Exam ENT Exam: Mucous Membranes Moist - Respiratory Exam Respiratory Exam: Clear to PA & Lateral, NORMAL BREATHING PATTERN. absent: Chest Wall Tenderness - Cardiovascular Exam Cardiovascular Exam: REGULAR RHYTHM, +S1, +S2 - GI/Abdominal Exam GI & Abdominal Exam: Normal Bowel Sounds - Extremities Exam Extremities exam: full ROM, joint swelling, normal capillary refill, normal inspection - Back Exam Back exam: FULL ROM. absent: CVA tenderness (L), CVA tenderness (R) - Neurological Exam Neurological exam: Alert, CN II-XII Intact, Normal Gait, Oriented x3, Reflexes Normal - Psychiatric Exam Psychiatric exam: Normal Affect, Normal Mood - Skin Skin Exam: Dry, Intact, Normal Color, Warm Discharge Plan - Follow Up Plan Condition: GOOD Disposition: HOME/ ROUTINE Instructions: Chest Pain (DC), Chest Pain (GEN) Referrals: Sunil Harkins MD [Primary Care Provider] - Larry Parrish MD [Staff Provider] -
== END 2017-07-15 21:52 | disposition home or self-care (01) ==
LOC: ED 07:47 → ERH 10:59 → 2RNO 13:50 → INTOOBSV 07-15 10:50 → OBSVTOIN 07-15 10:50 → 2RSO 07-15 11:19
PROVIDERS: ADMIT Family Medicine; ATTEND Family Medicine
DX: I21.4 Non-ST elevation (NSTEMI) myocardial infarction (principal); I25.10 Atherosclerotic heart disease of native coronary artery without angina pectoris; D50.9 Iron deficiency anemia, unspecified; E78.00 Pure hypercholesterolemia, unspecified; I10 Essential (primary) hypertension; F12.90 Cannabis use, unspecified, uncomplicated; F17.210 Nicotine dependence, cigarettes, uncomplicated; K25.9 Gastric ulcer, unspecified as acute or chronic, without hemorrhage or perforation; K31.819 Angiodysplasia of stomach and duodenum without bleeding; M54.30 Sciatica, unspecified side; N92.0 Excessive and frequent menstruation with regular cycle; Z82.3 Family history of stroke; Z82.49 Family history of ischemic heart disease and other diseases of the circulatory system
CPT/HCPCS: 36415; 71010; 71275; 78582; 80053; 80061; 82550; 83540; 83550; 83615; 84443; 84484; 85025; 85027; 85378; 86140; 93005; 93458; 93567; 93970; 96374; 99152; 99284; C1769; C2629; G0378; J1644; J1756; J1885; J2250; J3010; J7040; Q9967

== ENCOUNTER 2018-03-18 11:55 | Emergency (ER) | payer MEDICARE, OTHER ==
[2018-03-18 11:55] VITALS: BMI 32.8
[2018-03-18 12:08] VITALS: RESP 18; TEMP 98.2; O2SAT 100
[2018-03-18] MEDS ORDERED: Sodium Chloride 0.9% 1,000 ML IV STA (12:09)
--- NOTE | 2018-03-18 12:21 | ED PDOC ---
Arrival/HPI - General Chief Complaint: Chest Pain Time Seen by Provider: 03/18/18 12:01 Historian: Patient - History of Present Illness Narrative History of Present Illness (Text): 03/18/18 12:05 A 48 year old female smoker, whose past medical history includes anemia, presents to the emergency department complaining of intermittent back pain, primarily from the left-side for several days. Patient reports pain radiates to the left shoulder blade, down the left arm, and sometimes into the chest. Patient notes pain worsens with motion. Also, patient mentions today she began experiencing shortness of breath associated with the pain symptoms and became very concerned, so patient decided to come to the ER immediately for evaluation. Patient denies any fever, chills, nausea, vomiting, diarrhea, headache, palpitations, or other complaints at this time. Patient has no surgical history, no family history of CAD/GA, and does not consume alcohol. PMD: Dr. Sunil Zamora Time/Duration: < week Symptom Onset: Sudden Symptom Course: Unchanged, Intermittent Past Medical History - Provider Review Nursing Documentation Reviewed: Yes - Infectious Disease Hx of Infectious Diseases: None - Cardiac Hx Cardiac Disorders: No Hx Cardiac Arrhythmia: No Hx Congestive Heart Failure: No Hx Hypertension: No Hx Mitral Valve Prolapse: No Hx Pacemaker: No Hx Peripheral Edema: No - Pulmonary Hx Respiratory Disorders: No Hx Asthma: No Hx Bronchitis: No Hx Chronic Obstructive Pulmonary Disease (COPD): No Hx Emphysema: No Hx Pneumonia: No Hx Sleep Apnea: No - Neurological Hx Neurological Disorder: No Hx Alzheimer's Disease: No Hx Dementia: No Hx Migraine: No Hx Parkinson's Disease: No Hx Seizures: No Hx Transient Ischemic Attacks (TIA): No - HEENT Hx HEENT Disorder: No Hx Blind: No Hx Cataracts: No Hx Deafness: No Hx Difficulty Chewing: No Hx Epistaxis: No Hx Glaucoma: No Hx Macular Degeneration: No - Renal Hx Renal Disorder: No Hx Kidney Stones: No - Endocrine/Metabolic Hx Endocrine Disorders: No Hx Hyperthyroidism: No Hx Hypothyroidism: No - Hematological/Oncological Hx Blood Disorders: Yes Hx Anemia: Yes Hx Sickle Cell Disease: No - Integumentary Hx Dermatological Disorder: No Hx Basal Cell Carcinoma: No Hx Eczema: No Hx Melanoma: No Hx Psoriasis: No Hx Squamous Cell Carcinoma: No - Musculoskeletal/Rheumatological Hx Musculoskeletal Disorders: No Hx Arthritis: No Hx Falls: No Hx Fractures: No Hx Osteoporosis: No - Gastrointestinal Hx Gastrointestinal Disorders: No Hx Crohn's Disease: No Hx Diverticulitis: No Hx Gall Bladder Disease: No Hx Pancreatitis: No - Genitourinary/Gynecological Hx Genitourinary Disorders: No Hx Sexually Transmitted Diseases: No - Psychiatric Hx Psychophysiologic Disorder: No Hx Anxiety: No Hx Bipolar Disorder: No Hx Depression: No Hx Post Traumatic Stress Disorder: No Hx Schizophrenia: No Hx Substance Use: Yes (marijuana on occasion) - Surgical History Hx Appendectomy: No Hx Cholecystectomy: No Hx Coronary Stent: No - Anesthesia Hx Anesthesia: Yes Hx Anesthesia Reactions: No Hx Malignant Hyperthermia: No Family/Social History - Physician Review Nursing Documentation Reviewed: Yes Family/Social History: No Known Family HX Smoking Status: Light Smoker < 10 Cigarettes Daily Hx Alcohol Use: Yes Frequency of alcohol use: Socially Hx Substance Use: Yes (marijuana on occasion) Allergies/Home Meds Allergies/Adverse Reactions: Allergies No Known Allergies Allergy (Verified 03/18/18 12:03) Home Medications: Home Meds Medication Instructions Recorded Confirmed Oxycodone HCl/Acetaminophen 1 each PO PRN PRN 07/13/17 03/18/18 [Percocet 10-325 mg Tablet] Review of Systems - Physician Review All systems were reviewed & negative as marked: Yes - Review of Systems Constitutional: absent: Fevers, Night Sweats Respiratory: SOB (associated with pain symptoms ) Cardiovascular: Chest Pain. absent: Palpitations Gastrointestinal: absent: Diarrhea, Nausea, Vomiting Musculoskeletal: Back Pain (primarily left-side of back radiating to left shoulder blade, down the left arm, and sometimes into the chest) Neurological: absent: Headache Physical Exam Vital Signs Reviewed: Yes Vital Signs Temp Pulse Pulse Resp BP Pulse Ox 03/18/18 12:33 78 03/18/18 11:55 98.2 F 84 18 134/89 100 Temperature: Afebrile Blood Pressure: Normal Pulse: Regular Respiratory Rate: Normal Appearance: Positive for: Well-Appearing, Non-Toxic, Comfortable Pain Distress: None Mental Status: Positive for: Alert and Oriented X 3 - Systems Exam Head: Present: Atraumatic, Normocephalic Pupils: Present: PERRL Extroacular Muscles: Present: EOMI Conjunctiva: Present: Normal Neck: Present: Normal Range of Motion Respiratory/Chest: Present: Clear to Auscultation, Good Air Exchange, Other ( reproducable chest pain). No: Respiratory Distress, Accessory Muscle Use Cardiovascular: Present: Regular Rate and Rhythm, Normal S1, S2. No: Murmurs Abdomen: No: Tenderness, Distention, Peritoneal Signs Back: Present: Normal Inspection Upper Extremity: Present: Normal Inspection. No: Cyanosis, Edema Lower Extremity: Present: Normal Inspection. No: Edema Neurological: Present: GCS=15, CN II-XII Intact, Speech Normal Skin: Present: Warm, Dry, Normal Color. No: Rashes Psychiatric: Present: Alert, Oriented x 3, Normal Insight, Normal Concentration Medical Decision Making ED Course and Treatment: 03/18/18 12:09 Impression: 48 year old female with left-side back pain radiating to left shoulder blade, down the left arm, and into the chest sometimes. Physical exam shows patient has reproducible chest pain, otherwise no other acute findings upon examination. Plan: -- EKG -- Chest X-ray -- Labs -- Flexeril -- Toradol -- Zofran -- IV Fluids -- Urinalysis -- ED Urine Test -- Reassess and disposition Prior Visits: Notes and results from previous visits were reviewed. Patient was last seen in the emergency department on 11/29/2017 for gradual worsening of painful mass under left breast. Patient was admitted, diagnosed for abscess of breast. Progress Notes: EKG: Ordered, reviewed, and independently interpreted the EKG. Rate : 86 BPM Rhythm : NSR Interpretation : No ST-segment elevations or depressions, no T-wave inversions, normal intervals. Comparison : No previous EKG for comparison. - Lab Interpretations Lab Results: 03/18/18 12:30 03/18/18 12:30 Lab Results 03/18/18 12:30: Sodium 141, Potassium 4.0, Chloride 106, Carbon Dioxide 25, Anion Gap 14, BUN 12, Creatinine 0.6 L, Est GFR ( Amer) > 60, Est GFR ( Non-Af Amer) > 60, Random Glucose 101, Calcium 8.9, Total Bilirubin 0.2, AST 27 , ALT 31, Alkaline Phosphatase 92, Lactate Dehydrogenase 525, Total Creatine Kinase 67, Troponin I 0.07 D, Total Protein 7.9, Albumin 4.2, Globulin 3.7, Albumin/Globulin Ratio 1.1, Lipase 94 03/18/18 12:30: PT 11.8, INR 1.03, D-Dimer, Quantitative < 200 03/18/18 12:30: WBC 4.8, RBC 4.16, Hgb 8.7 L, Hct 29.0 L, MCV 69.7 L, MCH 20.9 L , MCHC 30.0 L, RDW 19.0 H, Plt Count 219, MPV 9.9, Gran % 65.1, Lymph % (Auto) 24.1, Door % (Auto) 9.4 H, Eos % (Auto) 1.0 L, Baso % (Auto) 0.4, Gran # 3.13, Lymph # (Auto) 1.2, Door # (Auto) 0.5, Eos # (Auto) 0.1, Baso # (Auto) 0.02 I have reviewed the lab results: Yes - Medication Orders Current Medication Orders: Discontinued Medications Cyclobenzaprine HCl (Flexeril) 10 mg PO STAT STA Stop: 03/18/18 12:10 Last Admin: 03/18/18 12:32 Dose: 10 mg Sodium Chloride (Sodium Chloride 0.9%) 1,000 mls @ 999 mls/hr IV .Q1H1M STA Stop: 03/18/18 13:09 Last Admin: 03/18/18 12:31 Dose: 999 mls/hr eMAR Start Stop Document 03/18/18 12:31 EQ (Rec: 03/18/18 12:32 EQ [id number]) Intravenous Solution Start Date 03/18/18 Start Time 12:32 Ketorolac Tromethamine (Toradol) 30 mg IVP STAT STA Stop: 03/18/18 12:10 Last Admin: 03/18/18 12:32 Dose: 30 mg MAR Pain Assessment Document 03/18/18 12:32 EQ (Rec: 03/18/18 12:32 EQ [id number]) Pain Reassessment Is this a pain reassessment? No Sleep Is patient sleeping during reassessment? No Presence of Pain Presence of Pain Yes IVP Administration Document 03/18/18 12:32 EQ (Rec: 03/18/18 12:32 EQ [id number]) Charges for Administration # of IVP Administrations 1 Ondansetron HCl (Zofran Inj) 4 mg IVP STAT STA Stop: 03/18/18 12:10 Last Admin: 03/18/18 12:32 Dose: 4 mg IVP Administration Document 03/18/18 12:32 EQ (Rec: 03/18/18 12:32 EQ [id number]) Charges for Administration # of IVP Administrations 1 - Scribe Statement The provider has reviewed the documentation as recorded by the Scribe Daniel Jones Provider Scribe Attestation: All medical record entries made by the Scribe were at my direction and personally dictated by me. I have reviewed the chart and agree that the record accurately reflects my personal performance of the history, physical exam, medical decision making, and the department course for this patient. I have also personally directed, reviewed, and agree with the discharge instructions and disposition. Disposition/Present on Arrival - Present on Arrival Any Indicators Present on Arrival: No History of DVT/PE: No History of Uncontrolled Diabetes: No Urinary Catheter: No History of Decub. Ulcer: No History Surgical Site Infection Following: None - Disposition Have Diagnosis and Disposition been Completed?: Yes Diagnosis: Musculoskeletal pain, Chest pain, atypical Disposition: HOME/ ROUTINE Disposition Time: 13:45 Patient Plan: Discharge Patient Problems: Current Active Problems Problem Status Onset Musculoskeletal pain Acute Chest pain, atypical Acute Condition: GOOD Discharge Instructions (ExitCare): Chest Pain That Is Not Caused by the Heart ( DC), Muscle and Bone Pain (DC), Chest Pain (ED) Additional Instructions: Thias- Sorry this pain is so bad. All of your tests were good. This is musculoskeletal pain. Motrin is for pain and inflamation, Flexeril is for stiffness and spasm and Zofran is for upset stomach, Follow up with your doctor. Return to us if worse or problems. Daniel- Dr. Homar Villasenor Prescriptions: Cyclobenzaprine [Cyclobenzaprine HCl] 10 mg PO TID #30 tab Ibuprofen [Motrin Tab] 800 mg PO TID #30 tab Ondansetron [Zofran Odt] 8 mg PO TID #30 tab.arun Referrals: Sunil Harkins MD [Primary Care Provider] - Follow up with primary Forms: [facility] ([employer]), SCHOOL NOTE, WORK NOTE
[2018-03-18 12:43] LABS: BASO # 0.02 K/mm3 (0.0-2.0); BASO % 0.4 % (0.0-3.0); EOS # 0.1 (0.0-0.7); GRAN # 3.13 (1.4-6.5); GRAN % 65.1 % (50.0-68.0); HEMOGLOBIN 8.7 g/dL (12.0-16.0); LYMPH # 1.2 (1.2-3.4); LYMPH % 24.1 % (22.0-35.0); MEAN CELL VOLUME 69.7 fl (80.0-105.0); MEAN CORPUSCULAR HEMOGLOBIN 20.9 pg (25.0-35.0); MEAN PLATELET VOLUME 9.9 fl (7.0-11.0); MONO # 0.5 (0.1-0.6); MONO % 9.4 % (1.0-6.0); RBC 4.16 10^6/uL (3.5-6.1); WHITE BLOOD COUNT 4.8 10^3/ul (4.5-11.0)
[2018-03-18 12:49] LABS: ALB/GLOB RATIO 1.1 (1.1-1.8); ALBUMIN 4.2 g/dL (3.0-4.8); ALT/SGPT 31 U/L (7-56); AST/SGOT 27 U/L (14-36); BLOOD UREA NITROGEN 12 mg/dL (7-21); CALCIUM 8.9 mg/dL (8.4-10.5); GFR AFRICAN-AMERICAN > 60; GFR NON-AFRICAN AMERICAN > 60; LIPASE 94 U/L (23-300)
[2018-03-18 12:52] LABS: D DIMER < 200 ng/mL (0-243); INR 1.03 (0.93-1.08); PROTHROMBIN TIME 11.8 SECONDS (9.4-12.5)
[2018-03-18 13:01] LABS: TROPONIN I 0.07 ng/mL
[2018-03-18 14:40] VITALS: BP 115/77; PULSE 80
[2018-03-18 14:43] LABS: URINE BILIRUBIN NEGATIVE (NEGATIVE); URINE BLOOD NEGATIVE (NEGATIVE); URINE GLUCOSE (UA) NEGATIVE (NEGATIVE); URINE LEUKOCYTE ESTERASE TRACE Leu/uL (NEGATIVE); URINE PROTEIN NEGATIVE mg/dL (<30 mg/dL); URINE UROBILINOGEN 0.2 E.U./dL (<1 E.U./dL)
[2018-03-18 14:49] LABS: URINE APPEARANCE CLEAR (CLEAR); URINE COLOR YELLOW (YELLOW)
[2018-03-18 14:52] LABS: URINE RBC 0 - 2 /hpf (0-2)
[2018-03-18 14:53] LABS: URINE BACTERIA MOD (NEG)
--- NOTE | 2018-03-18 19:00 | CARD ---
APPROVED REPORT EKG Measurement Heart [id number] [id number] <Conclusion> Normal sinus rhythm Normal ECG
== END 2018-03-18 14:37 | disposition home or self-care (01) ==
LOC: ED 11:55
DX: R07.89 Other chest pain (principal); F17.210 Nicotine dependence, cigarettes, uncomplicated
CPT/HCPCS: 80053; 81001; 81025; 82550; 83615; 83690; 84484; 85025; 85378; 85610; 87086; 93005; 96374; 96375; 99283; J1885; J2405; J7030

== ENCOUNTER 2018-09-06 21:17 | Emergency (ER) | payer OTHER ==
[2018-09-06 21:18] VITALS: BMI 32.8
== END 2018-09-06 22:56 | disposition left against medical advice (07) ==
LOC: ED 21:17
DX: Z02.89 Encounter for other administrative examinations (principal); R10.9 Unspecified abdominal pain